=== PATIENT | male | born 1940 | race Caucasian/White ===

== ENCOUNTER → 2016-10-18 | Outpatient (REF) | payer MEDICARE, OTHER ==
[2016-10-18 12:30] LABS: ALBUMIN 3.7 GM/DL (3.2-5.2); ALBUMIN/GLOBULIN RATIO 0.95 (1.00-1.93); BILIRUBIN,TOTAL 0.5 MG/DL (0.2-1.0); CALCIUM LEVEL 8.6 MG/DL (8.8-10.2); CREATININE FOR GFR 1.57 MG/DL (0.70-1.30); POTASSIUM SERUM 4.3 MEQ/L (3.5-5.1); TOTAL PROTEIN 7.6 GM/DL (6.4-8.2)
== END ==
LOC: M SFHCCLAY 08:07
PROVIDERS: ATTEND Family Medicine
DX: E78.2 Mixed hyperlipidemia (principal)

== ENCOUNTER → 2016-11-01 | Outpatient (REF) | payer MEDICARE, OTHER ==
[~2016-11-01] MED LIST: ASPI81TAEC PO; ATOR1TAB18 PO; CIPR500T89 PO; EFFI10TA4 PO; ELIQ2.5T PO; EPLE25TA PO; FINA5TAB2 PO; FLOM5CAP PO; MAALSUS2 PO; METO25TA74 PO; METO25TAB PO; NITR0.4S14 SL; PRAD150C PO; TORS20TA2 PO
== END ==
LOC: M SMT 16:50
PROVIDERS: ATTEND Nurse Practitioner Family
DX: R33.9 Retention of urine, unspecified (principal)
CPT/HCPCS: 51798; 81001; 87086; G0463

== ENCOUNTER → 2016-11-03 | Outpatient (CLI) | payer MEDICARE, BC, OTHER ==
--- NOTE | 2016-11-03 14:57 | REP ---
URINARY TRACT SONOGRAPHY: HISTORY: Urinary retention. FINDINGS: Scanning through the level of the urinary bladder demonstrates elevation of the bladder base from prostate enlargement. Prostate glandular dimensions by ultrasound are 8.4 x 6.7 x 7.6 cm. Calculated prostate glandular volume is therefore 222.7 mL. The urinary bladder is dilated on pre-void images with a calculated volume of 989 mL . Emptying ureteral jets are confirmed from both ureteral orifices on color Doppler interrogation. Postvoid residual is large calculated at 737 mL. Renal cortical echogenicity pattern is somewhat increased bilaterally. This is consistent with chronic medical renal disease. No hydronephrosis is seen on either side. There is a complex appearing cyst in the lower pole left kidney measuring 3.9 x 4.1 x 3 .7 cm. This displays a somewhat thickened septation and a possible calcification. This was noted on a prior study from [facility] dated January 11, 2012. It measured 3.1 x 3.3 x 3.0 cm at that time. It is essentially unchanged other than being slightly larger. The left kidney dimensions are 11.2 x 6.2 x 6.3 cm. Right kidney dimensions are 11.5 x 5.8 x 6.5 cm. IMPRESSION: 1. Evidence of bladder outlet obstruction with dilated pre-void bladder volume and large postvoid bladder residual. Enlarged prostate. 2. Increased renal cortical echogenicity pattern consistent with mild chronic renal disease. 3. Complex 4.1 cm cyst lower pole left kidney very slightly larger than on the 2011 prior study. Signed by Celio Horn MD 11/03/2016 03:03 P
== END ==
LOC: M SMT 13:45
PROVIDERS: ATTEND Nurse Practitioner Family
DX: R93.1 Abnormal findings on diagnostic imaging of heart and coronary circulation (principal)

== ENCOUNTER → 2016-11-04 | Outpatient (REF) | payer MEDICARE, OTHER ==
[~2016-11-04] MED LIST changes: -ASPI81TAEC PO; -CIPR500T89 PO; -ELIQ2.5T PO; -METO25TAB PO
== END ==
LOC: M SFHCCLAY 14:00
PROVIDERS: ATTEND Family Medicine
DX: N40.0 Benign prostatic hyperplasia without lower urinary tract symptoms (principal)

== ENCOUNTER 2016-11-11 15:35 | Inpatient (IN) | payer MEDICARE, OTHER ==
[~2016-11-11] VITALS: Ht 188 cm; Wt 111.0 kg
[2016-11-11] MEDS ORDERED: FLOM5CAP PO (15:53)
[2016-11-11] MEDS ORDERED: NITR0.4S14 SL (15:53)
[2016-11-11] MEDS ORDERED: METO25TA74 PO (15:53)
[2016-11-11] MEDS ORDERED: FINA5TAB2 PO (15:53)
[2016-11-11] MEDS ORDERED: PRAD150C PO (15:53)
[2016-11-11] MEDS ORDERED: ATOR1TAB18 PO (15:53)
[2016-11-11] MEDS ORDERED: EFFI10TA4 PO (15:53)
[2016-11-11] MEDS ORDERED: EPLE25TA PO (15:53)
[2016-11-11] MEDS ORDERED: LIDOCAINE 2% JELLY 30 ML As Ordered ONE (16:45)
[2016-11-11 16:48] LABS: BASO % 0.3 % (0.0-1.0); EOS # 0.2 K/mm3 (0.0-0.50); EOS % 1.6 % (0.0-3.0); LARGE UNSTAINED CELL # 0.2 K/mm3 (0.0-0.4); LARGE UNSTAINED CELL % 1.4 % (0.0-4.0); LYMPH # 1.3 K/mm3 (1.5-4.5); LYMPH % 12.8 % (24.0-44.0); MEAN CORPUSCULAR HEMOGLOBIN 31.5 pg (27.0-33.0); MEAN CORPUSCULAR HGB CONC 33.9 g/dl (32.0-36.5); MEAN CORPUSCULAR VOLUME 92.8 fl (80.0-96.0); MONO # 0.8 K/mm3 (0.0-0.8); MONO % 7.4 % (0.0-5.0); NEUTROPHILS % 76.4 % (36.0-66.0); PLATELET COUNT, AUTOMATED 224 k/mm3 (150-450); RED CELL DISTRIBUTION WIDTH 13.7 % (11.5-14.5); WHITE BLOOD COUNT 10.4 K/mm3 (4.0-10.0)
[2016-11-11 16:51] LABS: INR 1.36
[2016-11-11 16:57] LABS: CALCIUM LEVEL 8.6 MG/DL (8.8-10.2); CREATININE FOR GFR 1.72 MG/DL (0.70-1.30); GLOMERULAR FILTRATION RATE 41.4 (>42); POTASSIUM SERUM 3.7 MEQ/L (3.5-5.1)
[2016-11-11] MEDS ORDERED: LIDOCAINE 2% JELLY 30 ML TOP ONE (17:00)
[2016-11-11] MEDS ORDERED: MAALSUS2 PO (18:44)
[2016-11-11] MEDS ORDERED: TORS20TA2 PO (18:44)
[2016-11-11] MEDS ORDERED: ONDANSETRON 4MG/2ML VIAL (J2405) IV PRN (19:15)
--- NOTE | 2016-11-11 19:55 | REP ---
Clinical: Chest pain. Technique: PA and lateral. Comparison: 01/31/2011. Findings: Mediastinum and cardiac silhouette are stable sternotomy and postsurgical changes again noted. Lung zeng are clear minimal chronic left basilar changes are identified. No acute consolidation, effusion, or pneumothorax. Skeletal structures intact. Impression: Chronic stable changes primarily involving the left base. No obvious acute cardiopulmonary process. Signed by Phillip Varghese MD 11/11/2016 07:47 P
--- NOTE | 2016-11-11 20:54 | HPE ---
DATE OF ADMISSION: 11/11/2016 ATTENDING PHYSICIAN: Dr. Maribel Wick. PRIMARY CARE PROVIDER: Dr. Kilo Werner CHIEF COMPLAINT: Blood in urine HISTORY OF PRESENT ILLNESS: Mr. Holguin is a 76-year-old male with past medical history significant for coronary artery disease status post coronary artery bypass graft (CABG), hypertension, hyperlipidemia, atrial fibrillation, congestive heart failure (CHF), benign prostatic hypertrophy, urinary retention and occasional heartburn, who presents to the emergency department reporting that he urinated blood this afternoon. Patient has history of weak stream, urgency and enlarged prostate. He had PSA level checked and it was elevated at 7.3. He has had previous elevation of his PSA for which he had a prostate biopsy several years ago. Given his elevation in PSA and enlarged prostate, he was referred by his primary care provider to urology. He was seen last week by his urologist. It was noted that he had urinary retention. On 11/03/2016, he had a renal ultrasound done which revealed bladder obstruction with large residual enlarged prostate, chronic renal disease and a left renal cyst. This was pre- and post-void ultrasound. Pre-void volume was 989 mL and post-void was 737 mL. He was seen again by urology today because of the urinary retention. His post-void residual today was 550 mL. There was a trial for urinary catheterization that was performed this morning at the urologist's office. The patient reports that everything went well with that and he subsequently went home. He states that around noontime he went to have lunch with a friend and had an urgency to go to the bathroom and started urinating blood. He proceeded to come to the emergency department thereafter. He denies any previous history of hematuria. No dysuria. No fevers, chills, sweats, lightheadedness, dizziness, abdominal pain, nausea, vomiting, chest pain/pressure, shortness of breath, palpitations, joint pains, lower extremity edema, rash or skin lesions. The patient does have several heart conditions including coronary artery disease status post coronary artery bypass graft (CABG) and stenting, hypertension, atrial fibrillation and congestive heart failure (CHF). He has history of atrial fibrillation; however, heart rate is controlled. His CHF is compensated. He does not know of any valvular heart disease. He denies any angina or shortness of breath with exertion. He has a metabolic equivalent (METs) greater than four. His last stress test is reported to be in 08/2015 in [place], where he used to follow with Dr. Olmedo. Now he follows with Dr. Franklin's office, as he travels to [place] during the winter months. Last echocardiogram is unknown and there is none in our computer system. He denies any lung disease such as obstructive sleep apnea (TANYA) or chronic obstructive pulmonary disease (COPD). He does have history of chronic kidney disease. No history of cerebrovascular accident (CVA) or diabetes. No problems with anesthesia and no known family history of problems with anesthesia. His EKG in the emergency department revealed atrial fibrillation with a heart rate of 82, nonspecific ST-T wave abnormalities. Vitals were stable with the temperature of 97.1, pulse 68, respiratory rate 18, blood pressure 113/76, pulse oximetry 97% on room air. Initial blood pressure was elevated, but this has resolved without any intervention. Urology evaluated the patient in the emergency department and hospitalist was called for medical optimization for possible intervention. PAST MEDICAL HISTORY: 1. Coronary artery disease status post coronary artery bypass graft (CABG) and stent. 2. Atrial fibrillation, on chronic anticoagulation. 3. Congestive heart failure (CHF), ejection fraction (EF) unknown. 4. Hypertension. 5. Hyperlipidemia. 6. Benign prostatic hypertrophy. 7. Urinary retention. 8. Occasional heartburn. PAST SURGICAL HISTORY 1. Coronary artery bypass graft (CABG) in 2009. 2. Cardiac stent in 2010. 3. Colonoscopy. 4. Cataract surgery. 5. Tooth extraction. HOME MEDICATIONS: - Pradaxa 150 mg by mouth twice a day - nitroglycerin 0.4 mg sublingual as needed - Effient 10 mg by mouth daily - torsemide 20 mg daily - eplerenone 25 mg by mouth by mouth daily - Maalox one suspension twice daily as needed - atorvastatin 8 mg at night - finasteride 5 mg by mouth daily - Flomax 0.4 mg by mouth at night - metoprolol succinate 25 mg by mouth at night ALLERGIES: PLAVIX (rash), PROTAMINE (ineffective), MELATONIN (rash). SOCIAL HISTORY: Patient is a former smoker. He quit 52 years ago, maybe smoked a pack per day for 7-8 years. No alcohol or illicit drug use. He lives with his and grandson. No pets in the home. He travels to [place] every winter. No sick contacts. FAMILY HISTORY: Mom had history of myocardial infarction in her 40s, from a stroke in her 70s. Brother also has heart problems and brain aneurysm. Father had history of a hernia. REVIEW OF SYSTEMS: CONSTITUTIONAL: No fevers, chills, night sweats. No significant weight changes. No fatigue. HEENT: No headache, lightheadedness or dizziness. No blurry or double vision. No acute changes in vision or hearing. HEART: Denies any chest pain/pressure, shortness of breath with exertion, palpitations. No chronic lower extremity edema. No orthopnea or paroxysmal nocturnal dyspnea. PULMONARY: No shortness of breath. No cough. No sputum production. GASTROINTESTINAL: No nausea, vomiting, abdominal pain, diarrhea, constipation, hematochezia or melena. GENITOURINARY: Positive for urinary urgency, urinary retention, weak stream, hematuria. No dysuria. INTEGUMENT: No unusual rashes or skin lesions. MUSCULOSKELETAL: No unusual muscle or joint pains. ENDOCRINE: No history of diabetes or thyroid disorder. NEUROLOGIC: No syncope. No paresthesias. No history of cerebrovascular accident (CVA). HEMATOLOGIC: Has excessive bleeding with urination currently, but no previous history of excessive bleeding or bruising. PHYSICAL EXAMINATION: VITAL SIGNS: Temperature 97.1, pulse 68, respiratory rate 18, blood pressure 113/76, pulse ox 97% on room air. GENERAL: The patient is alert and oriented in no acute distress. HEENT: Normocephalic, atraumatic. Extraocular muscles are intact. Pupils are equally round and reactive to light. No scleral icterus. Moist mucosa. NECK: Supple. No cervical lymphadenopathy. No thyromegaly. No jugular venous distension appreciated. HEART: Normal S1, S2. Irregular. Positive for systolic ejection murmur. LUNGS: Clear to auscultation bilaterally. No rales, rhonchi or wheezing. ABDOMEN: Soft, nontender, nondistended. Positive bowel sounds. No rebound, guarding or rigidity. EXTREMITIES: No cyanosis or edema. Positive pedal pulses bilaterally. SKIN: Warm and dry. No rashes noted. NEUROLOGIC: No focal deficits. Cranial nerves II-XII are grossly intact. Motor and sensation intact. LABORATORY DATA: WBC 10.4, hemoglobin 13.6, hematocrit 40.1, platelet count 224. Sodium 138, potassium 3.7, chloride 104, carbon dioxide 25, anion gap 9, BUN 32, creatinine 1.72, GFR 41.4, fasting glucose 146, calcium 8.6. PT 16.9. INR 1.36. APTT 39.4. ASSESSMENT/PLAN: 1. Hematuria with recent urinary catheterization. Urology is currently following. The determination for cystoscopy has not been made yet. Will check hemoglobin and hematocrit (H H) every six hours. Hemoglobin is currently stable at 13.6. He has a Iverson catheter in place with continuous bladder irrigations. Will hold Effient and Pradaxa. Please go back up to physical examination and in the heart section please change it to say normal S1-S2. Regular rate. 2. Acute on chronic kidney disease. Creatinine is currently 1.7. Will provide gentle hydration with normal saline at a rate of 60 mL/hour. Will hold torsemide and eplerenone and continue to monitor renal function. Electrolytes are stable. 3. History of atrial fibrillation. Rate controlled. Will continue with metoprolol 25 mg at night. Anticoagulation is being held secondary to hematuria. 4. History of coronary artery disease status post coronary artery bypass graft (CABG) and stenting. Patient is currently asymptomatic. Patient's last stress test is reported to be 08/2015 and normal. 5. History of congestive heart failure (CHF). Currently compensated. Last echocardiogram unknown. 6. Hypertension. Blood pressure is currently stable. Continue with metoprolol. 7. Hyperlipidemia. Continue with a atorvastatin daily. 8. Benign prostatic hypertrophy (BPH) with urinary retention. Continue with Flomax and Proscar. Was supposed to start intermittent self cath. 9. Medical optimization. Patient may have cystoscopy procedure done. His vitals are stable. He is not experiencing any angina or shortness of breath with exertion. He has functional capacity of METS greater than four. EKG revealed atrial fibrillation with heart rate of 82. No acute ST-T wave changes. Will obtain a baseline chest x-ray. Will continue to hold his blood thinning medication. Will check an INR in the morning and monitor his hemoglobin and hematocrit every six hours. Will provide gentle hydration for his acute kidney injury. The patient is intermediate risk for cystoscopy procedure. He is medically optimized to proceed. Will keep the patient nothing by mouth in case he has the procedure done. 10. CODE STATUS: The patient is FULL CODE. 11. Patient will be admitted as inpatient to progressive care unit (PCU). Dr. Young to take over his care in the morning. 12. Deep venous thrombosis (DVT) prophylaxis with thromboembolitic deterrents (TEDs) and sequentials. My preceptor for this patient encounter was Dr. Maribel Wick. The preceptor was physically present in the building during the encounter and was fully available as needed. All aspects of the patient interview, examination, medical decision-making process, and medical care plan development were reviewed and approved by the preceptor. The preceptor is aware and concurs with the plan as stated in the body of this note and will attest to such by his/her co-signature. Patient seen and examined. Case discussed with resident. Agree with the plan mentioned in the H &P. Maribel NEVES
[2016-11-11] MEDS: ATORVASTATIN 20 MG TAB PO SCH (21:51)
[2016-11-11] MEDS: TAMSULOSIN 0.4 MG CAP PO SCH (21:52)
[2016-11-11] MEDS: NS 1,000 ML IV SCH (21:53)
[2016-11-11] MEDS: METOPROLOL SUCC *XL* 25MG TAB (TopROL *XL*) PO SCH (21:53)
[2016-11-11 21:55] VITALS: BP 148/80
--- NOTE | 2016-11-11 21:59 | CR ---
DATE OF CONSULTATION: 11/11/2016 REASON FOR CONSULTATION: Gross hematuria. HISTORY OF PRESENT ILLNESS: The patient is a 76-year-old male with benign prostatic hypertrophy (BPH) and urinary retention, who recently started undergoing clean intermittent catheterization (CIC) under the direction of Dr. Houston and Dr. Arriaza's urology office. Today, he presented to the office with gross hematuria after performing CIC. Of note, the patient is on Effient and Pradaxa for his cardiac issues. He has a history of atrial fibrillation and multiple cardiac stents. He was also recently started on dutasteride and tamsulosin for his prostate. He was sent to the emergency room today due to excessive gross hematuria and inability to place a catheter in the office. ALLERGIES: 1. PROTAMINE. 2. MELATONIN. 3. CLOPIDOGREL. HOME MEDICATIONS: Finasteride, tamsulosin, metoprolol, atorvastatin, Pradaxa, Effient, eplerenone, and nitroglycerin. PAST MEDICAL HISTORY: 1. Coronary artery disease. 2. Hypertension. 3. Atrial fibrillation. PAST SURGICAL HISTORY: 1. Cardiac bypass surgery. 2. Multiple cardiac stents. SOCIAL HISTORY: The patient lives with his . 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 FAMILY HISTORY: Multiple brothers have benign prostatic hyperplasia as well. PHYSICAL EXAMINATION: VITAL SIGNS: The patient's vital signs were found to be temperature 97.1, pulse 68, blood pressure 113/76, respiratory rate 18, oxygen saturation 97% on room air. Of note, when first presenting to the emergency room, his blood pressure was 187/101. GENERAL: No acute distress. LUNGS: Clear. ABDOMEN: Soft. Nontender, nondistended. GENITOURINARY: Circumcised phallus with hematuria from the meatus. Normal testes bilaterally. EXTREMITIES: Warm and well perfused. LABORATORY DATA: White blood cell count 10.4, hemoglobin 13.6, hematocrit 40.1, platelet count 224. Creatinine 1.72 from a baseline of 1.57. ASSESSMENT: The patient is a 76-year-old man with benign prostatic hypertrophy who recently started undergoing CIC for high residuals. Today he developed gross hematuria. In the emergency room, he was started on continuous bladder irrigation by myself with a 22-Welsh three-way Iverson catheter. 60 mL of clots were irrigated out of the bladder. The urine appears light pink color on moderate continuous bladder irrigation. We will continue to monitor currently. We will make the patient nothing by mouth after midnight in case he needs a cystoscopy with clot evacuation in the morning. I do not think he needs clot evacuation currently as the urine has started to clear up. He is being admitted by the medical team due to his multiple comorbidities.
[2016-11-11 23:59] VITALS: BP 131/74
[2016-11-12 04:45] VITALS: BP 124/67
[2016-11-12 05:22] LABS: MEAN CORPUSCULAR HEMOGLOBIN 30.9 pg (27.0-33.0); MEAN CORPUSCULAR HGB CONC 33.3 g/dl (32.0-36.5); MEAN CORPUSCULAR VOLUME 92.7 fl (80.0-96.0); RED CELL DISTRIBUTION WIDTH 13.8 % (11.5-14.5); WHITE BLOOD COUNT 12.2 K/mm3 (4.0-10.0)
[2016-11-12 05:33] LABS: CALCIUM LEVEL 7.8 MG/DL (8.8-10.2); CREATININE FOR GFR 1.31 MG/DL (0.70-1.30); GLOMERULAR FILTRATION RATE 56.6 (>42); INR 1.38; POTASSIUM SERUM 4.1 MEQ/L (3.5-5.1)
[2016-11-12 08:05] VITALS: BP 128/74
--- NOTE | 2016-11-12 08:23 | IPNPDOC ---
Text Note Date of Service The patient was seen on 11/12/16. NOTE Patient continues on CBI. No issues with clots overnight. Urine draining light pink at moderate rate. No pain currently. No nausea/vomiting. NAD AVSS Abdomen soft Ext wwp Iverson draining light pink at moderate rate Cr 1.3 from 1.7 Hb 11 from 13 76 year old man who was admitted on 11/11/2016 for gross hematuria due to CIC on effient and pradaxa, which are being held currently. At this point urine is much ribbon cleaner than last night. Patient would like to hold off on procedure, given that effects of pradaxa are wearing off. If hematuria gets worse today or if it doesn't start to clear by tomorrow, he understand that he might need a cystoscopy and clot evacuation. - Continue to hold pradaxa and effient per medicine - CBI, titrate to clear - Continue to trend H&H - Will follow closely VS,Ngoc, I+O VS, Ngoc, I+O Laboratory Tests 11/11/16 16:30 Red Blood Count 4.33, Mean Corpuscular Volume 92.8, Mean Corpuscular Hemoglobin 31.5, Mean Corpuscular Hemoglobin Concent 33.9, Red Cell Distribution Width 13.7 , Neutrophils (%) (Auto) 76.4 H, Lymphocytes (%) (Auto) 12.8 L, Monocytes (%) ( Auto) 7.4 H, Eosinophils (%) (Auto) 1.6, Basophils (%) (Auto) 0.3, Neutrophils # (Auto) 8.0 H, Lymphocytes # (Auto) 1.3 L, Monocytes # (Auto) 0.8, Eosinophils # (Auto) 0.2, Basophils # (Auto) 0.0, Calcium Level 8.6 L 11/11/16 22:33 11/12/16 04:48 Red Blood Count 3.75 L, Mean Corpuscular Volume 92.7, Mean Corpuscular Hemoglobin 30.9, Mean Corpuscular Hemoglobin Concent 33.3, Red Cell Distribution Width 13.8, Calcium Level 7.8 L Vital Signs Date Time Temp Pulse Resp B/P (MAP) Pulse Ox O2 Delivery O2 Flow Rate FiO2 11/12/16 08:05 97.3 80 18 128/74 (92) 99 Room Air I&O- Last 24 Hours up to 6 AM 11/12/16 06:00 Intake Total 480 ml Output Total 7525 ml Balance -7045 ml DYLON HATCH MD November 12, 2016 08:23
[2016-11-12] MEDS: FINASTERIDE 5 MG TAB PO SCH (08:35)
--- NOTE | 2016-11-12 09:38 | IPN ---
DATE OF ENCOUNTER: 11/12/2016 SUBJECTIVE: The patient was seen this morning at bedside. No acute overnight events. He continues to have hematuria. Iverson is draining pinkish-colored fluid. He denies any dysuria or urinary discomfort. No nausea, vomiting, abdominal pain. No fevers, chills, chest pain, palpitations, shortness of breath. The patient has not ambulated and is not able to appreciate any lightheadedness or dizziness in bed. OBJECTIVE: Temperature 97.3, pulse 80, respiratory rate 18, blood pressure 128/74, pulse oximetry 99% on room air. General: The patient is alert and oriented. In no acute distress. HEENT: Normocephalic, atraumatic. Extraocular muscles are intact. Pupils are equally round and reactive to light. No scleral icterus. Moist mucosa. Neck: Supple. No cervical lymphadenopathy or thyromegaly. Heart: Normal S1, S2. Irregular. Positive for systolic ejection murmur. Lungs: Clear to auscultation bilaterally. No rales, rhonchi, or wheezing. Abdomen: Soft, nontender, nondistended. Positive bowel sounds. No rebound, guarding, or rigidity. Iverson remains in place, draining pink urine. Extremities: No cyanosis or edema. Positive pedal pulses bilaterally. Skin: Warm and dry. No rashes noted. Neurologic: No focal deficits. Motor and sensation intact. LABORATORY DATA: WBC 12.2, hemoglobin 11.6, hematocrit 34.7, platelet count 216. Sodium 140, potassium 4.1, chloride 108, carbon dioxide 24, anion gap 8, BUN 27, creatinine 1.3, GFR 56.6, fasting glucose 111, calcium 7.8. PT 17.1, INR 1.38. IMAGING STUDIES: The patient had a chest x-ray yesterday, which revealed chronic stable changes. No obvious acute process. ASSESSMENT AND PLAN: 1. Hematuria with recent urinary catheterization. Urology is currently following. His urine output will be monitored for another day, and determination will be made tomorrow if cystoscopy is needed. If urine continues to clear up, this procedure will not be needed. Will continue to monitor his hemoglobin and hematocrit every 6 hours. There was a slight drop in his hemoglobin to 11.6. Will continue with continuous bladder irrigations. Will continue to hold Effient and Pradaxa and allow this to wear off to see if his urine clears up. 2. Acute on chronic kidney disease. Creatinine is currently 1.3. This has improved with normal saline. Will continue at 60 mL per hour. Will hold torsemide and eplerenone and continue to monitor renal function. Electrolytes are stable. 3. History of benign prostatic hypertrophy with urinary retention. The patient is supposed to have chronic intermittent catheterization at home. Will continue with Flomax and Proscar for the time being. 4. History of atrial fibrillation. Rate is controlled with metoprolol. Anticoagulation is being held secondary to hematuria. 5. History of coronary artery disease, status post coronary artery bypass graft (CABG) and stenting. The patient is currently asymptomatic. Continue with beta gonzalo and statin therapy. 6. History of congestive heart failure (CHF). Currently compensated. 7. Hypertension. Blood pressure is stable. Continue with metoprolol. 8. Hyperlipidemia. Continue with atorvastatin. 9. Deep venous thrombosis (DVT) prophylaxis. Thromboembolic deterrents (TEDs) and sequentials. My preceptor for this patient encounter was Becca Young MD. The preceptor was physically present in the building during the encounter and was fully available. As needed, all aspects of the patient interview, examination, medical decision making process, and medical care plan development were reviewed and approved by the preceptor. The preceptor is aware and concurs with the plan as stated in the body of this note and will attest to such by his/her cosignature.
[2016-11-12] MEDS: NS 1,000 ML IV SCH (11:55)
[2016-11-12 12:00] VITALS: BP 146/80
[2016-11-12 16:00] VITALS: BP 124/72
[2016-11-12] MEDS: ACETAMINOPHEN TAB 650MG DOSE (2X325MG) PO PRN (20:18)
[2016-11-12] MEDS: ATORVASTATIN 20 MG TAB PO SCH (20:18)
[2016-11-12] MEDS: METOPROLOL SUCC *XL* 25MG TAB (TopROL *XL*) PO SCH (20:19)
[2016-11-12] MEDS: TAMSULOSIN 0.4 MG CAP PO SCH (20:19)
[2016-11-12 23:59] VITALS: BP 134/76
[2016-11-13] MEDS: ACETAMINOPHEN TAB 650MG DOSE (2X325MG) PO PRN ×3 (01:38→21:59)
[2016-11-13 04:20] VITALS: BP 148/74
[2016-11-13] MEDS: NS 1,000 ML IV SCH ×2 (04:20→17:00)
[2016-11-13 05:52] LABS: MEAN CORPUSCULAR HEMOGLOBIN 31.9 pg (27.0-33.0); MEAN CORPUSCULAR HGB CONC 34.4 g/dl (32.0-36.5); MEAN CORPUSCULAR VOLUME 92.9 fl (80.0-96.0); RED CELL DISTRIBUTION WIDTH 13.9 % (11.5-14.5); WHITE BLOOD COUNT 17.7 K/mm3 (4.0-10.0)
[2016-11-13 06:08] LABS: ANION GAP 7 MEQ/L (8-16); BLOOD UREA NITROGEN 21 MG/DL (7-18); CALCIUM LEVEL 8.5 MG/DL (8.8-10.2); CARBON DIOXIDE LEVEL 24 MEQ/L (21-32); CHLORIDE LEVEL 109 MEQ/L (98-107); CREATININE FOR GFR 1.14 MG/DL (0.70-1.30); GLOMERULAR FILTRATION RATE > 60.0 (>42); GLUCOSE, FASTING 142 MG/DL (83-110); POTASSIUM SERUM 4.2 MEQ/L (3.5-5.1); SODIUM LEVEL 140 MEQ/L (136-145)
[2016-11-13 08:00] VITALS: BP 143/71
[2016-11-13] MEDS: FINASTERIDE 5 MG TAB PO SCH (09:02)
--- NOTE | 2016-11-13 09:11 | ECGEPIP ---
Stationary ECG Study [facility] - ED Test Date: 2016-11-11 Pat Name: JAVAN VALDIVIA Department: Room: - Gender: M [employer] Fe[employer]: : [id number] Requested By: JANINE SANCHEZ PA-C. Order Number: [id number] Reading MD: Nba Silver Measurements Intervals [place] Rate: 82 P: [place]: 0 QRS: 65 QRSD: 90 T: 28 QT: 392 QTc: 459 Interpretive Statements [employer] RBBB NONSPECIFIC ST & T-WAVE ABNORMALITY NO PRIORS Electronically Signed On 11-13-2016 9:11:14 EDT by Nba Silver
--- NOTE | 2016-11-13 09:34 | IPNPDOC ---
Text Note Date of Service The patient was seen on 11/13/16. NOTE Patient seen and examined. Urine clear on slow CBI, however becomes darker when CBI turned off for several minutes. No pain, nausea, vomiting, or fever. AVSS NAD Abdomen soft Ext wwp urine clear on slow CBI Cr 1.14 76 year old man who was admitted with gross hematuria after CIC on effient and pradaxa. I had a long discussion with the patient and recommended cystoscopy this morning because we still cannot stop the CBI. He would like to wait one more day prior to undergoing a procedure. We agreed to reevaluate tomorrow morning and if the CBI still cannot be stopped, then we would perform cystoscopy, clot evacuation and fulguration. - regular diet today, npo after midnight - continue CBI - recommend trending H&H less often (they have been stable) - Will continue to follow closely VS,Ngoc, I+O VS, Jaxe, I+O Laboratory Tests 11/12/16 10:29 11/12/16 16:31 11/12/16 22:15 11/13/16 05:22 Red Blood Count 3.46 L, Mean Corpuscular Volume 92.9, Mean Corpuscular Hemoglobin 31.9, Mean Corpuscular Hemoglobin Concent 34.4, Red Cell Distribution Width 13.9, Calcium Level 8.5 L Vital Signs Date Time Temp Pulse Resp B/P (MAP) Pulse Ox O2 Delivery O2 Flow Rate FiO2 11/13/16 08:00 98.0 78 18 143/71 (95) 96 Room Air I&O- Last 24 Hours up to 6 AM 11/13/16 05:59 Intake Total 1980 ml Output Total 3337 ml Balance -1357 ml DYLON HATCH MD November 13, 2016 09:34
[2016-11-13] MEDS: CIPROFLOXACIN 400 MG in APPROPRIATE DILUENT 1 EA IV SCH ×2 (10:55→22:00)
[2016-11-13 11:09] LABS: MICROSCOPIC INDICATED? MAN YES (NO)
[2016-11-13 11:12] LABS: BACTERIA, URINE NONE SEEN; RBC, URINE TNTC /hpf (0-3); SQUAMOUS EPITHELIAL CELL URINE NONE SEEN /hpf (SMALL AMT)
[2016-11-13 11:13] LABS: HYALINE CAST, URINE NONE SEEN /lpf (0-1); MICROSCOPIC EXAM PERFORMED
[2016-11-13 12:00] VITALS: BP 131/63
[2016-11-13 16:00] VITALS: BP 139/68
--- NOTE | 2016-11-13 18:47 | IPN ---
DATE: 11/13/2016 SUBJECTIVE: The patient is seen and examined in the room today. Today, the patient stated that he would prefer to wait to see if he continued to have hematuria, that postponed urological procedure to tomorrow. No overnight events reported. Denied any fever or chills or chest pain. OBJECTIVE: VITAL SIGNS: Temperature is 98, pulse 78, respirations 18, blood pressure is 143/71, pulse oximetry is 96% on room air. GENERAL: Fatigue. No sign of acute distress. Alert and oriented times three. HEENT: Normocephalic, atraumatic. Extraocular motor grossly intact. CARDIOVASCULAR: Irregularly irregular. Positive S1, S2. LUNGS: Clear to auscultation bilaterally. No wheezing or rhonchi. ABDOMEN: Soft, nontender, nondistended. Bowel sounds are present. No rebound or guarding. EXTREMITIES: No edema. No sign of cyanosis. GENITOURINARY (): The patient had a Iverson catheter with a flush. There are still multiple block clots that came out of the urinary catheter. LABORATORY DATA: White blood count (WBC) is 17.7, hemoglobin 3.46, hematocrit 32.1, platelet count is 187. Erythrocyte sedimentation rate (ESR) is 47. Sodium is 140, potassium is 4.2, chloride is 109, CO2 24, BUN 21, creatine 1.14, glomerular filtration rate (GFR) greater than 60, fasting glucose is 142. C-reactive protein is 3.05. Microbiology: Blood culture is pending. Urine culture is pending. ASSESSMENT AND PLAN: 1. Gross hematuria with recent urinary catheterization. Urology has been consulted. Would appreciate their assistance. The patient's anticoagulation has been on hold. The patient Pradaxa and Effient has been on hold since admission. Per the patient's decision, will continue medical management for now and will postpone the possible urological procedure to tomorrow. 2. Acute on chronic kidney injury. After the Iverson placement, the patient's renal function has been improving. Will continue supplement with IV fluid. 3. Atrial fibrillation. The patient's Pradaxa had to be on hold due to the hematuria. The patient's heart rate has been in satisfactory range. The patient is taking metoprolol succinate 25 mg by mouth at bedtime (q.h.s.). 4. History of coronary artery disease, status post coronary artery bypass graft (CABG) and stenting. Due to the acute bleeding, the patient's Effient will be on hold. The patient is currently taking metoprolol and statin. 5. History of congestive heart failure (CHF). Will monitor patient clinically. The patient is continued on the IV fluid. Patient is NPO. 6. Hypertension. Blood pressure is stable on metoprolol. 7. Hyperlipidemia on atorvastatin. 8. Deep vein thrombosis (DVT) prophylaxis. Due to the hematuria, anticoagulation will be on hold. The patient is not on Pradaxa anymore. The patient is on TEDs, sequential compression device. [facility]
[2016-11-13 20:00] VITALS: BP 145/69
[2016-11-13] MEDS: ATORVASTATIN 20 MG TAB PO SCH (21:59)
[2016-11-13] MEDS: METOPROLOL SUCC *XL* 25MG TAB (TopROL *XL*) PO SCH (22:00)
[2016-11-13] MEDS: TAMSULOSIN 0.4 MG CAP PO SCH (22:00)
[2016-11-14] VITALS (8 sets, daily range): BP systolic 120–154; BP diastolic 56–68
[2016-11-14] MEDS: NS 1,000 ML IV SCH ×3 (04:00→21:49)
[2016-11-14 05:16] LABS: BASO % 0.2 % (0.0-1.0); EOS # 0.1 K/mm3 (0.0-0.50); EOS % 0.8 % (0.0-3.0); LARGE UNSTAINED CELL # 0.3 K/mm3 (0.0-0.4); LARGE UNSTAINED CELL % 1.7 % (0.0-4.0); LYMPH # 1.4 K/mm3 (1.5-4.5); LYMPH % 9.2 % (24.0-44.0); MEAN CORPUSCULAR HEMOGLOBIN 31.3 pg (27.0-33.0); MEAN CORPUSCULAR HGB CONC 33.3 g/dl (32.0-36.5); MEAN CORPUSCULAR VOLUME 93.8 fl (80.0-96.0); MONO # 1.1 K/mm3 (0.0-0.8); MONO % 7.6 % (0.0-5.0); NEUTROPHILS % 80.5 % (36.0-66.0); PLATELET COUNT, AUTOMATED 171 k/mm3 (150-450); WHITE BLOOD COUNT 14.9 K/mm3 (4.0-10.0)
[2016-11-14 05:32] LABS: ANION GAP 5 MEQ/L (8-16); BLOOD UREA NITROGEN 17 MG/DL (7-18); CALCIUM LEVEL 7.3 MG/DL (8.8-10.2); CARBON DIOXIDE LEVEL 23 MEQ/L (21-32); CHLORIDE LEVEL 109 MEQ/L (98-107); CREATININE FOR GFR 1.13 MG/DL (0.70-1.30); GLOMERULAR FILTRATION RATE > 60.0 (>42); GLUCOSE, FASTING 144 MG/DL (83-110); POTASSIUM SERUM 4.2 MEQ/L (3.5-5.1); SODIUM LEVEL 137 MEQ/L (136-145)
[2016-11-14] MEDS: FINASTERIDE 5 MG TAB PO SCH (09:30)
[2016-11-14] MEDS: CIPROFLOXACIN 400 MG in APPROPRIATE DILUENT 1 EA IV SCH ×2 (09:30→21:49)
[2016-11-14] MEDS ORDERED: MIDAZOLAM INJ 2 MG/2 ML VIAL (J2250) As Ordered ONE (10:20)
[2016-11-14] MEDS ORDERED: PROPOFOL 200 MG/20 ML VIAL As Ordered ONE ×2 (10:20→11:35)
[2016-11-14] MEDS ORDERED: fentaNYL 100 MCG/2 ML INJECTION (J3010) As Ordered ONE ×2 (10:20→11:23)
[2016-11-14] MEDS ORDERED: LIDOCAINE 2% INJ 100 MG/5 ML SDV (FOR ANES.) As Ordered ONE (10:20)
--- NOTE | 2016-11-14 10:24 | IPNPDOC ---
Text Note Date of Service The patient was seen on 11/14/16. NOTE Patient still with hematuria requiring CBI. No acute events overnight. No nausea or pain. NAD AVSS Abdomen soft, nt, nd Ext wwp Urine dark pink on CBI A/P 76 year old man who developed gross hematuria after CIC on 11/11/2016 while on pradaxa and effient. Plan is to take to the operating room today for cystoscopy , clot evacuation, and fulguration given that hematuria is not resolving and patient is still passing clots in his urine. - Continue venodynes - Keep NPO - Booked and consented for OR Vital Signs Date Time Temp Pulse Resp B/P (MAP) Pulse Ox O2 Delivery O2 Flow Rate FiO2 11/14/16 08:24 98.8 78 18 127/64 (85) 97 Room Air 11/14/16 04:00 99.4 87 18 127/68 (87) 95 Room Air 11/14/16 00:00 99.9 64 20 124/66 (85) 99 Room Air 11/13/16 22:00 91 145/69 11/13/16 20:00 99.4 91 16 145/69 (94) 100 Room Air 11/13/16 16:00 98.7 71 18 139/68 (91) 97 Room Air 11/13/16 12:00 98.1 75 18 131/63 (85) 98 Room Air Intake & Output 11/14/16 06:00 Intake Total 1940 ml Output Total 3125 ml Balance -1185 ml Laboratory Tests 11/13/16 10:54: Bedside Urine Color (LAB) REDH, Bedside Urine Appearance (LAB) 1.005, Bedside Urine pH (LAB) 6.0, Bedside Urine Specific [place] (LAB 1.005, Bedside Urine Protein (LAB) 2+H, Bedside Urine Glucose (UA) TRACE(50 MG/DL), Bedside Urine Ketones (LAB) OBSCUREDH, Bedside Urine Blood POSITIVEH, Bedside Urine Nitrite ( LAB) OBSCUREDH, Bedside Urine Bilirubin (LAB) NEGATIVE, Bedside Urine Urobilinogen (LAB) NORMAL, Bedside Urine Leukocyte Esterase (L POSITIVEH, Urine WBC 3-5H, Urine RBC TNTCH, Urine Squamous Epithelial Cells NONE SEEN, Urine Bacteria NONE SEEN, Urine Hyaline Casts NONE SEEN, Urine Sediment Examination PERFORMED 11/14/16 04:59: White Blood Count 14.9H, Red Blood Count 3.27L, Hemoglobin 10.2L, Hematocrit 30.7L, Mean Corpuscular Volume 93.8, Mean Corpuscular Hemoglobin 31.3, Mean Corpuscular Hemoglobin Concent 33.3, Red Cell Distribution Width 14.0, Platelet Count 171, Neutrophils (%) (Auto) 80.5H, Lymphocytes (%) (Auto) 9.2L, Monocytes (%) (Auto) 7.6H, Eosinophils (%) (Auto) 0.8, Basophils (%) (Auto) 0.2, Neutrophils # (Auto) 12.0H, Lymphocytes # (Auto) 1.4L, Monocytes # (Auto) 1.1H, Eosinophils # (Auto) 0.1, Basophils # (Auto) 0.0, Large Unclassified Cells % 1.7 , Large Unclassified Cells # 0.3, Blood Urea Nitrogen 17, Creatinine 1.13, Sodium Level 137, Potassium Level 4.2, Chloride Level 109H, Carbon Dioxide Level 23, Calcium Level 7.3L, Anion Gap 5L, Glomerular Filtration Rate > 60.0, Fasting Glucose 144H Current Medications Medications (Trade) Dose Ordered Sig/Leni Route PRN Reason Start Time Stop Time Status Last Admin Dose Admin Acetaminophen (Tylenol Tab) 650 mg Q4HP PRN PO MILD PAIN OR FEVER 11/11/16 19:15 12/11/16 19:14 11/13/16 21:59 650 MG Atorvastatin Calcium (Lipitor) 80 mg QHS PO 11/11/16 21:00 12/11/16 20:59 11/13/16 21:59 80 MG Ciprofloxacin 400 mg/IV Miscellaneous Supplies 200 ml @ 200 mls/hr Q12H IV 11/13/16 10:00 11/20/16 09:59 11/14/16 09:30 200 MLS/HR Finasteride (Proscar) 5 mg DAILY PO 11/12/16 09:00 12/12/16 08:59 11/14/16 09:30 5 MG Metoprolol Succinate (TopROL XL) 25 mg QHS PO 11/11/16 21:00 12/11/16 20:59 11/13/16 22:00 25 MG Sodium Chloride 1,000 ml @ 100 mls/hr Q10H IV 11/13/16 17:00 12/13/16 16:59 11/14/16 04:00 100 MLS/HR Tamsulosin HCl (Flomax) 0.4 mg QHS PO 11/11/16 21:00 12/11/16 20:59 11/13/16 22:00 0.4 MG Laboratory Tests 11/11/16 16:30 Red Blood Count 4.33, Mean Corpuscular Volume 92.8, Mean Corpuscular Hemoglobin 31.5, Mean Corpuscular Hemoglobin Concent 33.9, Red Cell Distribution Width 13.7 , Neutrophils (%) (Auto) 76.4, Lymphocytes (%) (Auto) 12.8, Monocytes (%) (Auto ) 7.4, Eosinophils (%) (Auto) 1.6, Basophils (%) (Auto) 0.3, Neutrophils # (Auto ) 8.0, Lymphocytes # (Auto) 1.3, Monocytes # (Auto) 0.8, Eosinophils # (Auto) 0.2, Basophils # (Auto) 0.0, Calcium Level 8.6 11/11/16 22:33 11/12/16 04:48 Red Blood Count 3.75, Mean Corpuscular Volume 92.7, Mean Corpuscular Hemoglobin 30.9, Mean Corpuscular Hemoglobin Concent 33.3, Red Cell Distribution Width 13.8 , Calcium Level 7.8 11/12/16 10:29 11/12/16 16:31 11/12/16 22:15 11/13/16 05:22 Red Blood Count 3.46, Mean Corpuscular Volume 92.9, Mean Corpuscular Hemoglobin 31.9, Mean Corpuscular Hemoglobin Concent 34.4, Red Cell Distribution Width 13.9 , Calcium Level 8.5 11/14/16 04:59 Red Blood Count 3.27, Mean Corpuscular Volume 93.8, Mean Corpuscular Hemoglobin 31.3, Mean Corpuscular Hemoglobin Concent 33.3, Red Cell Distribution Width 14.0 , Calcium Level 7.3, Neutrophils (%) (Auto) 80.5, Lymphocytes (%) (Auto) 9.2, Monocytes (%) (Auto) 7.6, Eosinophils (%) (Auto) 0.8, Basophils (%) (Auto) 0.2, Neutrophils # (Auto) 12.0, Lymphocytes # (Auto) 1.4, Monocytes # (Auto) 1.1, Eosinophils # (Auto) 0.1, Basophils # (Auto) 0.0 VS,Fishbone, I+O VS, Fishbone, I+O Laboratory Tests 11/14/16 04:59 Red Blood Count 3.27 L, Mean Corpuscular Volume 93.8, Mean Corpuscular Hemoglobin 31.3, Mean Corpuscular Hemoglobin Concent 33.3, Red Cell Distribution Width 14.0, Neutrophils (%) (Auto) 80.5 H, Lymphocytes (%) (Auto) 9.2 L, Monocytes (%) (Auto) 7.6 H, Eosinophils (%) (Auto) 0.8, Basophils (%) ( Auto) 0.2, Neutrophils # (Auto) 12.0 H, Lymphocytes # (Auto) 1.4 L, Monocytes # (Auto) 1.1 H, Eosinophils # (Auto) 0.1, Basophils # (Auto) 0.0, Calcium Level 7.3 L Vital Signs Date Time Temp Pulse Resp B/P (MAP) Pulse Ox O2 Delivery O2 Flow Rate FiO2 11/14/16 08:24 98.8 78 18 127/64 (85) 97 Room Air I&O- Last 24 Hours up to 6 AM 11/14/16 06:00 Intake Total 1940 ml Output Total 3125 ml Balance -1185 ml DYLON HATCH MD November 14, 2016 10:24
[2016-11-14] MEDS ORDERED: cefTRIAXone SOD 1 GM VIAL (J0696) As Ordered ONE (10:44)
[2016-11-14] MEDS ORDERED: ONDANSETRON 4MG/2ML VIAL (J2405) As Ordered ONE (11:28)
--- NOTE | 2016-11-14 12:02 | IPN ---
DATE OF VISIT: 11/14/2016 SUBJECTIVE: The patient is seen and examined in the room today. THE patient has been nothing by mouth (n.p.o.). The patient is scheduled to go to the operating room (OR) for urological procedures. Still some blood clot noted in the Iverson catheter. The patient denies any worsening of lower extremity swelling. Denied any shortness of breath. OBJECTIVE: VITAL SIGNS: Temperature is 98.8, pulse 78, respirations 18, blood pressure is 127/64, and pulse oximetry is 97% in room air. GENERAL: No sign of acute distress. Alert and oriented times three. HEENT: Normocephalic, atraumatic. Extraocular motor grossly intact. CARDIOVASCULAR: Positive S1, S2. Irregularly irregular. Heart rate running between 65 to 90 on telemetry. LUNGS: Clear to auscultation bilaterally. No wheezing or rhonchi. ABDOMEN: Soft, nontender, nondistended. Bowel sounds are present. No rebound or guarding. EXTREMITIES: Trace edema bilaterally. No sign of cyanosis. LABORATORY DATA: White blood count (WBC) is 14.9, hemoglobin 10.2, hematocrit 30.7 and platelet count is 171. Sodium is 137, potassium 4.2, chloride 109, CO2 23, BUN 17, creatine 1.13, glomerular filtration rate (GFR) greater than 60, fasting glucose is 144. Calcium 7.4. Microbiology: Blood culture is negative after 24 hours times two sets. Urine culture is pending. ASSESSMENT AND PLAN: 1. Gross hematuria with recent urinary catheterization while patient is on anticoagulation and antiplatelet therapy. Urology will bring the patient to the operating room for a procedure today. Will continue to follow. The patient's Pradaxa and Effient has been on hold since admission. 2. Acute on chronic kidney injury. After the Iverson placement, the patient's renal function continued to improve. Now patient's renal function is at its baseline. 3. Atrial fibrillation. Heart rate is in the satisfactory range. The patient is taking metoprolol succinate 25 mg by mouth daily to control the heart rate. Pradaxa is on hold due to hematuria. 4. History of coronary artery disease status post coronary artery bypass graft (CABG) and stenting. Effient has been on hold due to acute hematuria. The patient is currently on a beta gonzalo and statin. 5. History of congestive heart failure (CHF). No sign of fluid overload at the moment. The patient has been nothing by mouth and the patient is supported with IV fluid. Continue to monitor for any sign of fluid overload. 6. Hypertension. Blood pressure is stable on metoprolol. 7. Hyperlipidemia, on atorvastatin. 8. Deep vein thrombosis (DVT) prophylaxis. Due to the hematuria, anticoagulation has been on hold. Not on Pradaxa. The patient is on thromboembolic deterrent stockings (TEDs) and sequential compression devices.
[2016-11-14] MEDS ORDERED: fentaNYL 100 MCG/2 ML INJECTION (J3010) IV PRN (12:30)
[2016-11-14] MEDS ORDERED: LR 1,000 ML IV SCH (12:30)
[2016-11-14] MEDS ORDERED: ONDANSETRON 4MG/2ML VIAL (J2405) IV PRN (12:30)
[2016-11-14] MEDS: TAMSULOSIN 0.4 MG CAP PO SCH (21:48)
[2016-11-14] MEDS: ATORVASTATIN 20 MG TAB PO SCH (21:48)
[2016-11-14] MEDS: METOPROLOL SUCC *XL* 25MG TAB (TopROL *XL*) PO SCH (21:49)
[2016-11-15] VITALS (7 sets, daily range): BP systolic 129–146; BP diastolic 60–82
[2016-11-15] MEDS: ACETAMINOPHEN TAB 650MG DOSE (2X325MG) PO PRN ×2 (04:43→18:49)
[2016-11-15 05:15] LABS: BASO % 0.2 % (0.0-1.0); EOS # 0.3 K/mm3 (0.0-0.50); EOS % 2.2 % (0.0-3.0); LARGE UNSTAINED CELL # 0.2 K/mm3 (0.0-0.4); LARGE UNSTAINED CELL % 1.3 % (0.0-4.0); LYMPH # 1.3 K/mm3 (1.5-4.5); LYMPH % 8.2 % (24.0-44.0); MEAN CORPUSCULAR HEMOGLOBIN 31.8 pg (27.0-33.0); MEAN CORPUSCULAR HGB CONC 34.1 g/dl (32.0-36.5); MEAN CORPUSCULAR VOLUME 93.1 fl (80.0-96.0); MONO # 1.1 K/mm3 (0.0-0.8); MONO % 8.2 % (0.0-5.0); NEUTROPHILS % 79.8 % (36.0-66.0); PLATELET COUNT, AUTOMATED 166 k/mm3 (150-450); RED CELL DISTRIBUTION WIDTH 14.1 % (11.5-14.5); WHITE BLOOD COUNT 13.7 K/mm3 (4.0-10.0)
[2016-11-15 05:27] LABS: ANION GAP 7 MEQ/L (8-16); BLOOD UREA NITROGEN 18 MG/DL (7-18); CALCIUM LEVEL 7.3 MG/DL (8.8-10.2); CARBON DIOXIDE LEVEL 22 MEQ/L (21-32); CHLORIDE LEVEL 107 MEQ/L (98-107); CREATININE FOR GFR 1.13 MG/DL (0.70-1.30); GLOMERULAR FILTRATION RATE > 60.0 (>42); GLUCOSE, FASTING 167 MG/DL (83-110); POTASSIUM SERUM 4.1 MEQ/L (3.5-5.1); SODIUM LEVEL 136 MEQ/L (136-145)
--- NOTE | 2016-11-15 06:33 | RO ---
DATE OF PROCEDURE: 11/14/2016 OPERATING SURGEON: Dr. Hussein Haile MACHINE CLOTH TRIMMER: None. ANESTHESIA: Dr. Thomas PREOPERATIVE DIAGNOSIS: Gross hematuria. POSTOPERATIVE DIAGNOSIS: Gross hematuria with benign prostatic hypertrophy. OPERATIVE FINDINGS: Enlarged prostate with a large median lobe. ESTIMATED BLOOD LOSS: Minimal. URINE OUTPUT: Not measurable. DRAINS: 24 Algerian 3-way Iverson catheter connected to continuous bladder irrigation. CONDITION: Good. INTRAVENOUS FLUIDS IN THE OPERATING ROOM: 350 mL. INDICATIONS FOR THE PROCEDURE: The patient is a 76-year-old male who presented to the hospital on 11/11/2016 with gross hematuria after a straight catheterization. Of note, the patient was on Pradaxa and Effient. He was admitted to the medical service and was started on continuous bladder irrigation after manual irrigation was performed in the emergency room by myself. He was on continuous bladder irrigation up until 11/14/2016. He continued to have gross hematuria and bladder irrigation was unable to be weaned off. It was decided to take the patient to the operating room for cystoscopy, clot evacuation and fulguration. The patient understood the risks and benefits of the procedure and wished to proceed. Of note, the patient inquired about having a transurethral resection of the prostate performed at the same time. I explained to him that this was not a good idea because his Effient had not been completely weaned off yet. PROCEDURE NARRATIVE: The patient was taken to the operating room after all necessary paperwork was confirmed. He was placed in dorsal lithotomy position and prepped and draped in the usual sterile fashion. This was performed after induction of anesthesia. Ceftriaxone was administered as preoperative antibiotic. A 26 Algerian resectoscope with a visual obturator was inserted into the bladder. The entire urethra was examined. It was normal with several areas noted from previous traumatic straight catheterizations. The prostate was enlarged with a high bladder neck and a very large median lobe obstructing the bladder outlet. At this point, the visual obturator was removed, keeping the resectoscope sheath in place. A working element was placed with a button electrode for fulguration. The entire bladder was examined. There were no abnormalities noted in the bladder other than mucosal irritation from his Iverson catheter and continuous bladder irrigation. Both ureteral orifices were identified and were not harmed. The prostatic urethra had several small areas of bleeding which were fulgurated with the button electrode. This was done with normal saline for irrigation as this was a bipolar electrode. Once adequate hemostasis was obtained and all the clot was evacuated out using the Urovac evacuator, a 24 Algerian Iverson catheter was placed into the bladder. This was a 3-way Iverson catheter. It was connected to continuous bladder irrigation. The irrigation that was coming out of the bladder was considerably less bloody than prior to the procedure. At this point, it was determined to terminate the procedure. He was connected to continuous bladder irrigation and a Iverson catheter drainage bag. The patient tolerated the procedure well and was taken to the recovery room without incident. PLAN: The patient will remain on continuous bladder irrigation until the urine is completely clear. He will likely need to go home with a Iverson catheter and will followup with Dr. Martinez or Dr. 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
[2016-11-15] MEDS: NS 1,000 ML IV SCH (08:34)
[2016-11-15] MEDS ORDERED: LIDOCAINE 1% MDV 20ML VIAL As Ordered ONE (08:43)
[2016-11-15] MEDS: FINASTERIDE 5 MG TAB PO SCH (09:14)
[2016-11-15] MEDS ORDERED: CALCIUM GLUCONATE 1,000 MG in D5W MINI-BAG PLUS 100 ML IV ONE (10:00)
[2016-11-15] MEDS ORDERED: ISOVUE-370 76% 100ML VIAL (Q9967) As Ordered ONE (10:41)
[2016-11-15] MEDS: CIPROFLOXACIN 400 MG in APPROPRIATE DILUENT 1 EA IV SCH (11:29)
--- NOTE | 2016-11-15 13:28 | IPNPDOC ---
Text Note Date of Service The patient was seen on 11/15/16. NOTE Subjective: Patient feels well once to go home. Denies any complaints. No abdominal pain. No nausea or vomiting. No chest pain or shortness of breath. Objective: Vitals: (see below) General: No acute distress, laying comfortably in bed. HEENT: Moist mucous membranes. Neck: No JVD or lymphadenopathy Cardiac: RRR, No murmurs Pulm: Clear to auscultation b/l. No wheezing, rhonchi Abd: NT/ND + BS Ext: No edema or cyanosis Iverson with mild hematuria. No clots. Labs (see below) Images: Assessment/Plan 1. Gross hematuria with recent self-catheterization. Patient had been on Pradaxa and effient, which are currently on hold as the patient continues to have hematuria. Patient did go to the or with urology on 11/14/16 for cystoscopy , evacuation of clots, fulguration, and he tolerated it well. Continued on bladder irrigation given continued hematuria. Hemodynamically stable. Hemoglobin had dropped from 13.6-8.9, and the patient will be transfused 2 units of PRBC today. Will likely need to Iverson in place upon discharge for follow-up with outpatient urology. 2. Acute on chronic kidney injury- improved. Iverson in place. Avoid nephrotoxins. 3. Atrial fibrillation with rapid ventricular response- metoprolol taste tartrate and increased dose. Asymptomatic. Patient aware of increased risk of stroke as his Pradaxa is on hold. 4. History of CAD status post CABG- Effient on hold given hematuria. Denies any chest pain or palpitations. Continue metoprolol and statin. 5. History of CHF- compensated. 6. Hypertension- stable. 7. Hyperlipidemia- on statin DVT prophy: SCDs VS,Fishbone, I+O VS, Fishbone, I+O Laboratory Tests 11/15/16 05:05 Red Blood Count 2.81 L, Mean Corpuscular Volume 93.1, Mean Corpuscular Hemoglobin 31.8, Mean Corpuscular Hemoglobin Concent 34.1, Red Cell Distribution Width 14.1, Neutrophils (%) (Auto) 79.8 H, Lymphocytes (%) (Auto) 8.2 L, Monocytes (%) (Auto) 8.2 H, Eosinophils (%) (Auto) 2.2, Basophils (%) ( Auto) 0.2, Neutrophils # (Auto) 11.0 H, Lymphocytes # (Auto) 1.3 L, Monocytes # (Auto) 1.1 H, Eosinophils # (Auto) 0.3, Basophils # (Auto) 0.0, Calcium Level 7.3 L Vital Signs Date Time Temp Pulse Resp B/P (MAP) Pulse Ox O2 Delivery O2 Flow Rate FiO2 11/15/16 12:00 98.8 117 18 137/60 (85) 98 Room Air 11/14/16 12:20 2 I&O- Last 24 Hours up to 6 AM 11/15/16 05:59 Intake Total 5350 ml Output Total 5050 ml Balance 300 ml DEVAN MICHEL MD November 15, 2016 13:28
[2016-11-15] MEDS: METOPROLOL TART 25 MG TABLET PO SCH ×2 (14:05→20:22)
--- NOTE | 2016-11-15 16:46 | REP ---
CT ABDOMEN: HISTORY: Complex cyst seen in the left kidney measuring 4.1 cm. CONTRAST: 100 mL Isovue-370 COMPARISON: There are no prior CTs for comparison. FINDINGS: The precontrast enhanced portion of the examination shows geographic low densities scattered throughout the hepatic parenchyma, one particular area of note is seen in the anterior segment of the right lobe abutting the medial segment of the left lobe, which is of extreme low density. There is cholelithiasis. There are calcifications seen abutting and within a left renal cystic mass. This has precontrast Hounsfield unit reading which are near water density. The contrast enhanced portion of the exam shows no evidence of contrast enhancement of the left renal cystic mass. There is a single thin nonenhancing intracystic septation. This cystic mass measures approximately 4.1 cm in its greatest dimension. There are no definite enhancing renal lesions. There are no enhancing hepatic lesions. The spleen, pancreas, and adrenal glands are within normal limits. The abdominal aorta and periaortic regions are within normal limits. No free fluid or free air is seen in the abdomen. The intraabdominal bowel loops and their mesenteries are within normal limits. CT pelvis: There is a Iverson balloon catheter seen in the urinary bladder. The urinary bladder wall appears thickened, although the bladder is decompressed by catheterization. There is no free fluid or free air seen in the pelvis. There is no pelvic adenopathy. There is prostatomegaly. Bone window technique throughout the exam shows spinal degenerative changes. The lung bases show bibasilar posterior pleural thickening, which is slightly irregular and seen in conjunction with subsegmental atelectatic changes and bilateral basilar cylindrical bronchiectasis. IMPRESSION: 1. 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 Urological consultation and followup is recommended, although the findings do suggest a low potential for malignancy. 2. Geographic fatty infiltration of the liver. 3. Cholelithiasis. 4. Urinary bladder wall thickening with air density within the urinary bladder likely secondary to recent urinary bladder instrumentation with catheter. 5. Prostatomegaly. 6. Abnormal lung base images as described above. Contrast enhanced CT examination of the chest is recommended for complete evaluation. 7. Other findings as described above. Signed by Connor Kim DO 11/15/2016 06:03 P
[2016-11-15] MEDS: ATORVASTATIN 20 MG TAB PO SCH (20:21)
[2016-11-15] MEDS: TAMSULOSIN 0.4 MG CAP PO SCH (20:21)
[2016-11-15] MEDS: CIPROFLOXACIN 500 MG TAB PO SCH (23:22)
[2016-11-16] MEDS: NS 1,000 ML IV SCH ×4 (00:30→21:32)
[2016-11-16 04:00] VITALS: BP 134/77
[2016-11-16 05:36] LABS: MEAN CORPUSCULAR HEMOGLOBIN 31.2 pg (27.0-33.0); MEAN CORPUSCULAR HGB CONC 33.5 g/dl (32.0-36.5); MEAN CORPUSCULAR VOLUME 93.3 fl (80.0-96.0); WHITE BLOOD COUNT 11.8 K/mm3 (4.0-10.0)
[2016-11-16 05:56] LABS: ALBUMIN 2.2 GM/DL (3.2-5.2); ALBUMIN/GLOBULIN RATIO 0.54 (1.00-1.93); ALKALINE PHOSPHATASE 100 U/L (45-117); ALT/SGPT 26 U/L (12-78); ANION GAP 6 MEQ/L (8-16); AST/SGOT 22 U/L (15-37); BILIRUBIN,TOTAL 0.8 MG/DL (0.2-1.0); BLOOD UREA NITROGEN 21 MG/DL (7-18); CARBON DIOXIDE LEVEL 24 MEQ/L (21-32); CHLORIDE LEVEL 108 MEQ/L (98-107); CREATININE FOR GFR 1.08 MG/DL (0.70-1.30); GLOMERULAR FILTRATION RATE > 60.0 (>42); GLUCOSE, FASTING 128 MG/DL (83-110); POTASSIUM SERUM 4.1 MEQ/L (3.5-5.1); SODIUM LEVEL 138 MEQ/L (136-145); TOTAL PROTEIN 6.3 GM/DL (6.4-8.2)
[2016-11-16 08:00] VITALS: BP 136/70
[2016-11-16] MEDS: METOPROLOL TART 25 MG TABLET PO SCH ×2 (08:40→21:31)
[2016-11-16] MEDS: CIPROFLOXACIN 500 MG TAB PO SCH ×2 (08:40→21:30)
[2016-11-16] MEDS: FINASTERIDE 5 MG TAB PO SCH (08:40)
[2016-11-16] MEDS ORDERED: MOM 30ML SUSPENSION UDC PO PRN (11:45)
[2016-11-16 12:15] VITALS: BP 142/78
[2016-11-16] MEDS: DOCUSATE SODIUM 100 MG CAP PO SCH ×2 (14:57→21:30)
[2016-11-16] MEDS: MIRALAX *UNIT DOSE* 17GM PACKET PO SCH ×2 (14:57→21:30)
[2016-11-16 15:30] VITALS: BP 145/78
--- NOTE | 2016-11-16 15:34 | IPNPDOC ---
Text Note Date of Service The patient was seen on 11/16/16. NOTE Subjective: Denies any complaints. No abdominal pain. No nausea or vomiting. Still has mild hematuria. Objective: Vitals: (see below) General: No acute distress, laying comfortably in bed. HEENT: Moist mucous membranes. Neck: No JVD or lymphadenopathy Cardiac: RRR, No murmurs Pulm: Clear to auscultation b/l. No wheezing, rhonchi Abd: NT/ND + BS Ext: No edema or cyanosis Iverson with mild hematuria. No clots. Labs (see below) Images: Assessment/Plan 1. Gross hematuria with recent self-catheterization. Patient had been on Pradaxa and effient, which are currently on hold as the patient continues to have hematuria. Patient did go to the or with urology on 11/14/16 for cystoscopy , evacuation of clots, fulguration, and he tolerated it well. Continued on bladder irrigation given continued hematuria. Hemodynamically stable. Hemoglobin had dropped from 13.6-8.9, transfused 2 units of PRBC 11/15/16. Will likely need to Iverson in place upon discharge for follow-up with outpatient urology. Spoke with Dr. Shepard - plan for TURP on Monday. 2. Acute on chronic kidney injury- improved. Iverson in place. Avoid nephrotoxins. 3. Atrial fibrillation with rapid ventricular response- metoprolol taste tartrate and increased dose. Asymptomatic. Patient aware of increased risk of stroke as his Pradaxa is on hold. 4. History of CAD status post CABG- Effient on hold given hematuria. Denies any chest pain or palpitations. Continue metoprolol and statin. 5. History of CHF- compensated. 6. Hypertension- stable. 7. Hyperlipidemia- on statin DVT prophy: SCDs Pt is medically optimized for TURP on Monday. VS,Fishbone, I+O VS, Fishbone, I+O Laboratory Tests 11/16/16 05:11 Red Blood Count 3.49 L, Mean Corpuscular Volume 93.3, Mean Corpuscular Hemoglobin 31.2, Mean Corpuscular Hemoglobin Concent 33.5, Red Cell Distribution Width 14.0, Calcium Level 8.0 L, Aspartate Amino Transf (AST/SGOT) 22, Alanine Aminotransferase (ALT/SGPT) 26, Alkaline Phosphatase 100, Total Bilirubin 0.8, Total Protein 6.3 L, Albumin 2.2 L Vital Signs Date Time Temp Pulse Resp B/P (MAP) Pulse Ox O2 Delivery O2 Flow Rate FiO2 11/16/16 12:15 98.7 78 22 142/78 (99) 96 Room Air 11/14/16 12:20 2 I&O- Last 24 Hours up to 6 AM 11/16/16 06:00 Intake Total 3320 ml Output Total 1250 ml Balance 2070 ml DEVAN MICHEL MD November 16, 2016 15:34
--- NOTE | 2016-11-16 16:09 | REP ---
TRANSRECTAL PROSTATE ULTRASOUND: Transrectal prostate ultrasound performed. The prostate is enlarged and heterogeneous in echotexture. It measures 5.6 x 6.9 x 3.7 cm for a total volume of 74.7 mL. No peripheral zone mass is visualized. IMPRESSION: Prostate is enlarged as discussed above. No definite peripheral zone mass. Signed by Jonh Jerry MD 11/17/2016 07:08 P
--- NOTE | 2016-11-16 17:03 | IPN ---
DATE: 11/16/2016 Germán is a 76-year-old gentleman with significant benign prostatic hypertrophy (BPH) and urinary retention who had attempted clean intermittent catheterization, but this caused gross hematuria. He had been on Effient and Pradaxa and was seen in consultation by Dr. Hussein Haile on 11/11/2016. A 3-way Iverson catheter was placed, and he was started on continuous bladder irrigation. He was then brought to the operating room on 11/14/2016 after the bleeding continued for cystoscopy and clot irrigation. Dr. Haile found that there were multiple false passages in the urethra from attempted catheterizations and that there was also significant trilobar prostatic hypertrophy with a very large median lobe. The patient and Dr. Haile had discussed a transurethral resection of the prostate. Mr. Holguin had been being seen in the office, and he voids approximately 989 mL, postvoid residuals as high as 737 mL. He has not had urodynamic studies done. He also has a history of elevated prostate-specific antigen (PSA) levels, and his last PSA was 7.27 on 11/04/2016. He did have an outside PSA level prior to this that was 8, and looking back at PSAs, since 2011 his PSAs have ranged from 6.45-8.40 in October 2013. He did have prostate biopsies approximately 10 years ago. He also was found to have a complex cyst on a renal ultrasound. A CT scan was done on 11/15/2016 without then followed with contrast. The cyst measured 4.1 cm and its greatest diameter, and there was no enhancement or anything that made it look too complex. It was consistent with a Bosniak class II cyst. They still do recommend followup. His urinary bladder showed bladder wall thickening, and there was prostatomegaly. PHYSICAL EXAMINATION: He is on continuous bladder irrigation (CBI) now, and the urine was still light red, and he did have some clots last night. He has no costovertebral angle (CVA) tenderness, and his abdomen was otherwise soft and nontender. DISCUSSION: The patient would be interested in having a transurethral resection of the prostate while he is still an inpatient. We discussed, though, that it would be important to see the size of his prostate, especially with the elevated PSA levels, and if the size is not significantly enlarged, then he may require either an MRI or another prostate biopsy. I am also slightly concerned about the false passages, since this can make it hard to recatheterize him until this is healed after the transurethral resection of the prostate. We will gather all the information, though, and then decide whether it is safe to proceed, since he has been off his Effient and Pradaxa now for 5 days. We also asked for medical clearance today. LABORATORY DATA: His hemoglobin and hematocrit today are 10.9/32.6, and this is after 2 units of packed red blood cells yesterday. His white blood count is 11.8. His creatinine is 1.08, and his final urine and blood cultures show no growth. IMPRESSION: 1. Gross hematuria in a patient who was started on clean intermittent catheterization (CIC) because of urinary retention secondary to significant benign prostatic hypertrophy (BPH) with multiple urethral false passages status post cystoscopy and clot irrigation on 11/14/[address] Haile. 2. History of BPH, started on finasteride and Flomax several weeks ago in a patient who voids approximately 989 mL with postvoid residuals as high as 737 mL. 3. 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 4. Patient who has been on both Pradaxa and Effient with a history of atrial fibrillation and coronary artery disease with multiple cardiac stents and also a history of cardiac bypass surgery. 5. History of significantly elevated PSA level since at least 2012 in our computer, up to 8.4, now 7.27, and this has ranged from 6-8 over the years. PLAN: 1. Obtain a prostate ultrasound today to get some idea of the size of the prostate to see if he even would be a candidate for a transurethral resection of the prostate. 2. Continue continuous bladder irrigation and supportive care at this time, and we will continue to follow him and decide the best next step in his treatment plan.
[2016-11-16 20:00] VITALS: BP 129/62
[2016-11-16] MEDS: TAMSULOSIN 0.4 MG CAP PO SCH (21:30)
[2016-11-16] MEDS: ATORVASTATIN 20 MG TAB PO SCH (21:32)
[2016-11-17] VITALS (7 sets, daily range): BP systolic 117–143; BP diastolic 63–81; PULSE 82
[2016-11-17] MEDS: NS 1,000 ML IV SCH ×2 (06:03→17:25)
[2016-11-17 06:24] LABS: MEAN CORPUSCULAR HEMOGLOBIN 31.9 pg (27.0-33.0); MEAN CORPUSCULAR HGB CONC 34.3 g/dl (32.0-36.5); RED CELL DISTRIBUTION WIDTH 14.2 % (11.5-14.5); WHITE BLOOD COUNT 10.5 K/mm3 (4.0-10.0)
[2016-11-17 06:40] LABS: ALBUMIN/GLOBULIN RATIO 0.54 (1.00-1.93); ALKALINE PHOSPHATASE 102 U/L (45-117); ALT/SGPT 31 U/L (12-78); ANION GAP 9 MEQ/L (8-16); AST/SGOT 27 U/L (15-37); BILIRUBIN,TOTAL 0.6 MG/DL (0.2-1.0); BLOOD UREA NITROGEN 20 MG/DL (7-18); CALCIUM LEVEL 7.5 MG/DL (8.8-10.2); CARBON DIOXIDE LEVEL 20 MEQ/L (21-32); CHLORIDE LEVEL 108 MEQ/L (98-107); CREATININE FOR GFR 1.02 MG/DL (0.70-1.30); GLOMERULAR FILTRATION RATE > 60.0 (>42); GLUCOSE, FASTING 126 MG/DL (83-110); POTASSIUM SERUM 4.1 MEQ/L (3.5-5.1); SODIUM LEVEL 137 MEQ/L (136-145); TOTAL PROTEIN 5.7 GM/DL (6.4-8.2)
[2016-11-17] MEDS: MIRALAX *UNIT DOSE* 17GM PACKET PO SCH ×2 (09:00→21:00)
--- NOTE | 2016-11-17 10:01 | IPN ---
DATE OF SERVICE: 11/17/2016 Mr. Holguin is still on continuous bladder irrigation, and his urine is light pink without any significant clots overnight. We did a transrectal ultrasound yesterday, and his prostatic volume is 74.7 grams. His hemoglobin is still dropping, and today his hemoglobin and hematocrit is 9.7 over 27. We spent at least 45 minutes today discussing these issues. I had reviewed his office notes, and he has a very large bladder capacity. We discussed that normally we do like to do urodynamic studies prior to a transurethral resection of the prostate, but at this point, we really would like to get him out of the hospital. I just wanted him to clearly understand that after a transurethral resection of prostate (TURP) that he can continue to have problems with urinary retention and/or urinary urgency and urge incontinence because of long-term bladder issues from long-term obstruction. We also discussed that there is a small possibility of prostate cancer, and if we do not do biopsies first and we do the transurethral resection of the prostate, that this may be an extra operation. We discussed different options for prostate cancer, including watchful waiting, de Belen assisted laparoscopic prostatectomies, and radiation therapy. Even if he chose radiation therapy, he would need something done for the prostatic obstruction first. At this point, he clearly understands all the risks and benefits but would still like to proceed with the TURP tomorrow, understanding that there may be need for significant intervention still in the future. We discussed the major risks of the procedure, which included but was not limited to the risks of general anesthesia, reactions to medication, bleeding, infection, injury to the urinary sphincter, incontinence either by stress incontinence and/or urgency or urge incontinence, continued urinary retention, possibility of prostate cancer requiring further surgical management in the future, and continued bleeding requiring further blood transfusions. At this point, informed consent was obtained in both verbal and written form. PHYSICAL EXAMINATION He is afebrile. His blood pressure is 143/81, and his respiratory rate is 20, and his pulse is 95. He is on continuous bladder irrigation (CBI), and the urine is still light red without any significant clots. He has no costovertebral angle (CVA) tenderness, and his abdomen is soft and nontender without any rebound, guarding, or masses. LABORATORY DATA: His white blood count is 10.5, hemoglobin and hematocrit is 9.3 over 27. His BUN and creatinine is 20 over 1.02. Transrectal ultrasound of the prostate showed a volume of 74.7 mL. There were no peripheral zone masses seen, but the prostate was enlarged and heterogeneous in echotexture. IMPRESSION: 1. Urinary retention with benign prostatic hypertrophy (BPH) with a large median lobe. 2. Significant gross hematuria despite being off his blood thinners and on continuous bladder irrigation, even requiring blood transfusion. 3. Complex 4.1 cm renal cyst on the left side, which is a Bosniak II. 4. History of benign prostatic hypertrophy, on finasteride and Flomax started several weeks ago with a very large bladder capacity. 5. History of significantly elevated prostate-specific antigen (PSA) level since 2012 with a history of a transrectal ultrasound and a prostate biopsy years ago, which was negative. 6. Significant coronary artery disease in a patient who has been on Pradaxa and Effient but has been off now for 5 days today. PLAN: 1. Nothing by mouth after midnight, and we will start sequential compression devices and thromboembolic deterrent (JOSE ALBERTO) stockings. 2. Ancef 2 grams, converting supervisor to the operating room (OR). 3. Plan a transurethral resection of the prostate tomorrow. 4. 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
[2016-11-17] MEDS: FINASTERIDE 5 MG TAB PO SCH (10:10)
[2016-11-17] MEDS: CIPROFLOXACIN 500 MG TAB PO SCH ×2 (10:10→21:43)
[2016-11-17] MEDS: DOCUSATE SODIUM 100 MG CAP PO SCH ×2 (10:11→21:00)
[2016-11-17] MEDS: METOPROLOL TART 25 MG TABLET PO SCH ×2 (10:12→21:46)
--- NOTE | 2016-11-17 14:19 | IPNPDOC ---
Text Note Date of Service The patient was seen on 11/17/16. NOTE Subjective: Denies any complaints. No abdominal pain. No nausea or vomiting. Still has mild hematuria. Objective: Vitals: (see below) General: No acute distress, laying comfortably in bed. HEENT: Moist mucous membranes. Neck: No JVD or lymphadenopathy Cardiac: RRR, No murmurs Pulm: Clear to auscultation b/l. No wheezing, rhonchi Abd: NT/ND + BS Ext: No edema or cyanosis Iverson with mild hematuria. No clots. Labs (see below) Images: Assessment/Plan 1. Gross hematuria with recent self-catheterization. Patient had been on Pradaxa and effient, which are currently on hold as the patient continues to have hematuria. Patient did go to the or with urology on 11/14/16 for cystoscopy , evacuation of clots, fulguration, and he tolerated it well. Continued on bladder irrigation given continued hematuria. Hemodynamically stable. Hemoglobin had dropped from 13.6-8.9, transfused 2 units of PRBC 11/15/16. Will likely need to Iverson in place upon discharge for follow-up with outpatient urology. Spoke with Dr. Shepard - plan for TURP on Monday. 2. Acute on chronic kidney injury- improved. Iverson in place. Avoid nephrotoxins. 3. Atrial fibrillation with controlled ventricular rate- cont metoprolol . Asymptomatic. Patient aware of increased risk of stroke as his Pradaxa is on hold. Will restart after TURP, as pt continues to have hematuria, requiring 2U PRBC on 11/15. 4. History of CAD status post CABG- Effient on hold given hematuria. Denies any chest pain or palpitations. Continue metoprolol and statin. 5. History of CHF- compensated. 6. Hypertension- stable. 7. Hyperlipidemia- on statin DVT prophy: SCDs Pt is medically optimized for TURP on Monday. RCRI score 2, 6.6% risk of major cardiac event. Pt has >4 MET at baseline. No CP/palpitations. VS,Fishbone, I+O VS, Fishbone, I+O Laboratory Tests 11/17/16 05:52 Red Blood Count 2.90 L, Mean Corpuscular Volume 93.0, Mean Corpuscular Hemoglobin 31.9, Mean Corpuscular Hemoglobin Concent 34.3, Red Cell Distribution Width 14.2, Calcium Level 7.5 L, Aspartate Amino Transf (AST/SGOT) 27, Alanine Aminotransferase (ALT/SGPT) 31, Alkaline Phosphatase 102, Total Bilirubin 0.6, Total Protein 5.7 L, Albumin 2.0 L Vital Signs Date Time Temp Pulse Resp B/P (MAP) Pulse Ox O2 Delivery O2 Flow Rate FiO2 11/17/16 11:30 97.8 75 20 123/70 (87) 99 Room Air 11/14/16 12:20 2 I&O- Last 24 Hours up to 6 AM 11/17/16 05:59 Intake Total 63326 ml Output Total 01156 ml Balance -485 ml DEVAN MICHEL MD Nov 17, 2016 14:19
[2016-11-17] MEDS: ATORVASTATIN 20 MG TAB PO SCH (21:43)
[2016-11-17] MEDS: TAMSULOSIN 0.4 MG CAP PO SCH (21:43)
[2016-11-17] MEDS ORDERED: zolPIDEM TARTRATE 5 MG TAB PO ONE (22:45)
[2016-11-18] VITALS (10 sets, daily range): BP systolic 121–174; BP diastolic 63–83; PULSE 75–92
[2016-11-18 05:53] LABS: MEAN CORPUSCULAR HEMOGLOBIN 31.4 pg (27.0-33.0); MEAN CORPUSCULAR HGB CONC 33.4 g/dl (32.0-36.5); MEAN CORPUSCULAR VOLUME 93.8 fl (80.0-96.0); RED CELL DISTRIBUTION WIDTH 14.1 % (11.5-14.5); WHITE BLOOD COUNT 11.8 K/mm3 (4.0-10.0)
[2016-11-18 06:20] LABS: ALKALINE PHOSPHATASE 104 U/L (45-117); ALT/SGPT 43 U/L (12-78); ANION GAP 7 MEQ/L (8-16); AST/SGOT 33 U/L (15-37); BILIRUBIN,TOTAL 0.6 MG/DL (0.2-1.0); BLOOD UREA NITROGEN 19 MG/DL (7-18); CARBON DIOXIDE LEVEL 20 MEQ/L (21-32); CHLORIDE LEVEL 112 MEQ/L (98-107); CREATININE FOR GFR 1.01 MG/DL (0.70-1.30); GLOMERULAR FILTRATION RATE > 60.0 (>42); GLUCOSE, FASTING 125 MG/DL (83-110); POTASSIUM SERUM 4.2 MEQ/L (3.5-5.1); SODIUM LEVEL 139 MEQ/L (136-145)
[2016-11-18] MEDS: DOCUSATE SODIUM 100 MG CAP PO SCH ×2 (09:00→21:00)
[2016-11-18] MEDS: MIRALAX *UNIT DOSE* 17GM PACKET PO SCH ×2 (09:00→21:00)
[2016-11-18] MEDS: FINASTERIDE 5 MG TAB PO SCH (09:03)
[2016-11-18] MEDS: METOPROLOL TART 25 MG TABLET PO SCH ×2 (09:03→22:54)
[2016-11-18] MEDS: CIPROFLOXACIN 500 MG TAB PO SCH ×2 (09:04→22:48)
--- NOTE | 2016-11-18 12:55 | IPNPDOC ---
Text Note Date of Service The patient was seen on 11/18/16. NOTE Subjective: Denies any complaints. Objective: Vitals: (see below) General: No acute distress, laying comfortably in bed. HEENT: Moist mucous membranes. Neck: No JVD or lymphadenopathy Cardiac: RRR, No murmurs Pulm: Clear to auscultation b/l. No wheezing, rhonchi Abd: NT/ND + BS Ext: No edema or cyanosis Iverson with mild hematuria. No clots. Labs (see below) Images: Assessment/Plan 1. Gross hematuria with recent self-catheterization. Patient had been on Pradaxa and effient, which are currently on hold as the patient continues to have hematuria. Patient did go to the or with urology on 11/14/16 for cystoscopy , evacuation of clots, fulguration, and he tolerated it well. Continued on bladder irrigation given continued hematuria. Hemodynamically stable. Hemoglobin had dropped from 13.6-8.9, transfused 2 units of PRBC 11/15/16. Will likely need to Iverson in place upon discharge for follow-up with outpatient urology. Spoke with Dr. Shepard - plan for TURP on today. 2. Acute on chronic kidney injury- improved. Iverson in place. Avoid nephrotoxins. 3. Atrial fibrillation with controlled ventricular rate- cont metoprolol . Asymptomatic. Patient aware of increased risk of stroke as his Pradaxa is on hold. Will restart after TURP, as pt continues to have hematuria, requiring 2U PRBC on 11/15. 4. History of CAD status post CABG- Effient on hold given hematuria. Denies any chest pain or palpitations. Continue metoprolol and statin. 5. History of CHF- compensated. 6. Hypertension- stable. 7. Hyperlipidemia- on statin DVT prophy: SCDs Pt is medically optimized for TURP on Monday. RCRI score 2, 6.6% risk of major cardiac event. Pt has >4 MET at baseline. No CP/palpitations. VS,Fishbone, I+O VS, Fishbone, I+O Laboratory Tests 11/18/16 05:24 Red Blood Count 3.08 L, Mean Corpuscular Volume 93.8, Mean Corpuscular Hemoglobin 31.4, Mean Corpuscular Hemoglobin Concent 33.4, Red Cell Distribution Width 14.1, Calcium Level 8.0 L, Aspartate Amino Transf (AST/SGOT) 33, Alanine Aminotransferase (ALT/SGPT) 43, Alkaline Phosphatase 104, Total Bilirubin 0.6, Total Protein 6.0 L, Albumin 2.0 L Vital Signs Date Time Temp Pulse Resp B/P (MAP) Pulse Ox O2 Delivery O2 Flow Rate FiO2 11/18/16 09:03 76 137/74 11/18/16 07:55 97.8 18 99 Room Air 11/14/16 12:20 2 I&O- Last 24 Hours up to 6 AM 11/18/16 06:00 Intake Total 6920 ml Output Total 5252 ml Balance 1668 ml DEVAN MICHEL MD Nov 18, 2016 12:55
[2016-11-18] MEDS: NS 1,000 ML IV SCH ×2 (14:41→22:52)
[2016-11-18] MEDS ORDERED: fentaNYL 100 MCG/2 ML INJECTION (J3010) As Ordered ONE ×2 (15:53→16:54)
[2016-11-18] MEDS ORDERED: MIDAZOLAM INJ 2 MG/2 ML VIAL (J2250) As Ordered ONE (15:53)
[2016-11-18] MEDS ORDERED: PHENYLephrine HCL 500 MCG/5 ML (100MCG/ML) SYRINGE (J2370) As Ordered ONE (16:30)
[2016-11-18] MEDS ORDERED: NEOSTIGMINE 1MG/ML 5 ML SYRINGE (J2710) As Ordered ONE (16:51)
[2016-11-18] MEDS ORDERED: ONDANSETRON 4MG/2ML VIAL (J2405) As Ordered ONE (16:52)
[2016-11-18] MEDS ORDERED: GLYCOPYRROLATE INJ 0.2 MG/ML 2 ML VIAL As Ordered ONE (16:52)
[2016-11-18] MEDS ORDERED: ceFAZolin 2 GM/D5W 50 ML IV BAG (J0690) As Ordered ONE (17:27)
[2016-11-18] MEDS ORDERED: ROCURONIUM BROMIDE 50 MG/5 ML VIAL As Ordered ONE (17:33)
[2016-11-18] MEDS ORDERED: LR 1,000 ML IV SCH (20:15)
[2016-11-18] MEDS ORDERED: fentaNYL 100 MCG/2 ML INJECTION (J3010) IV PRN (20:15)
[2016-11-18] MEDS ORDERED: ONDANSETRON 4MG/2ML VIAL (J2405) IV PRN (20:15)
[2016-11-18] MEDS: ATORVASTATIN 20 MG TAB PO SCH (22:48)
[2016-11-18] MEDS: TAMSULOSIN 0.4 MG CAP PO SCH (22:48)
[2016-11-19] VITALS (13 sets, daily range): BP systolic 99–156; BP diastolic 58–91; PULSE 81–105
[2016-11-19] MEDS ORDERED: BELLADONNA ALKALOIDS/OPIUM SUPP PR PRN (00:30)
[2016-11-19] MEDS ORDERED: zolPIDEM TARTRATE 10MG TAB PO PRN (00:30)
[2016-11-19] MEDS: NS 1,000 ML IV SCH ×3 (03:00→20:49)
[2016-11-19 05:49] LABS: MEAN CORPUSCULAR HEMOGLOBIN 30.8 pg (27.0-33.0); MEAN CORPUSCULAR HGB CONC 32.4 g/dl (32.0-36.5); MEAN CORPUSCULAR VOLUME 94.9 fl (80.0-96.0); RED CELL DISTRIBUTION WIDTH 14.1 % (11.5-14.5)
[2016-11-19 06:20] LABS: ALBUMIN 1.9 GM/DL (3.2-5.2); ALBUMIN/GLOBULIN RATIO 0.51 (1.00-1.93); ALKALINE PHOSPHATASE 91 U/L (45-117); ALT/SGPT 37 U/L (12-78); ANION GAP 9 MEQ/L (8-16); AST/SGOT 23 U/L (15-37); BILIRUBIN,TOTAL 0.7 MG/DL (0.2-1.0); BLOOD UREA NITROGEN 19 MG/DL (7-18); CALCIUM LEVEL 7.7 MG/DL (8.8-10.2); CARBON DIOXIDE LEVEL 19 MEQ/L (21-32); CHLORIDE LEVEL 113 MEQ/L (98-107); CREATININE FOR GFR 1.19 MG/DL (0.70-1.30); GLOMERULAR FILTRATION RATE > 60.0 (>42); GLUCOSE, FASTING 156 MG/DL (83-110); POTASSIUM SERUM 4.5 MEQ/L (3.5-5.1); SODIUM LEVEL 141 MEQ/L (136-145); TOTAL PROTEIN 5.6 GM/DL (6.4-8.2)
[2016-11-19] MEDS: METOPROLOL TART 25 MG TABLET PO SCH (08:30)
[2016-11-19] MEDS: MIRALAX *UNIT DOSE* 17GM PACKET PO SCH ×3 (08:31→23:56)
[2016-11-19] MEDS: FINASTERIDE 5 MG TAB PO SCH (08:31)
[2016-11-19] MEDS: DOCUSATE SODIUM 100 MG CAP PO SCH ×3 (08:31→23:55)
[2016-11-19] MEDS: CIPROFLOXACIN 500 MG TAB PO SCH ×2 (09:17→20:48)
[2016-11-19] MEDS ORDERED: TORSEMIDE 20 MG TAB PO ONE (09:30)
--- NOTE | 2016-11-19 11:37 | RO ---
DATE OF PROCEDURE: 11/11/2016 PREPROCEDURE DIAGNOSES: Persistent gross hematuria, benign prostatic hypertrophy (BPH) with urinary retention, and elevated PSA level. POSTPROCEDURE DIAGNOSES: Persistent gross hematuria, benign prostatic hypertrophy (BPH) with urinary retention, and elevated PSA level. Findings of severe chronic prostatitis. PROCEDURE: Cystoscopy and saline transurethral resection of the prostate. SURGEON: Dr. Erin Shepard ANESTHESIA: General. MEDICATIONS: Ciprofloxacin preoperatively. DRAINS: #24-Maltese three-way Iverson catheter. SPECIMENS: Prostatic chips. FINDINGS: Significant findings of chronic prostatitis even with areas of purulent pockets in the prostate and significant bleeding. INDICATIONS FOR PROCEDURE: The patient is a 76-year-old gentleman who was admitted to the hospital on 11/11/2016 after he had been seen in our office and found to be in urinary retention. He did not want a Iverson catheter placed so he was taught how to do clean intermittent catheterization. With this, he was having trouble and began having gross hematuria, so he was admitted to the hospital where a Iverson catheter was placed and he was started on continuous bladder irrigation. He also was on Effient and Pradaxa for cardiac issues with a history of atrial fibrillation and severe coronary artery disease status post multiple stents and a coronary artery bypass graft (CABG). He was brought to the operating room by Dr. Hussein Haile, who was the covering physician on 11/15/[address] Haile found some false passages from placing the catheter and also significant obstructing prostate with a very large median lobe obstructing the bladder outlet. After long discussion with the patient because he continued to have to be on continuous bladder irrigation, it was decided to bring him to the operating room and do a transurethral resection of the prostate. We did discuss that with this elevated PSA levels that he could have prostate cancer and also that we usually like to do urodynamic studies prior to the procedure with the large bladder capacity he had preoperatively, but felt that this was more urgent in nature and it was decided to proceed. DESCRIPTION OF PROCEDURE: The patient was brought into the operating room. Sequential compression devices and JOSE ALBERTO stockings were placed. General anesthesia was induced. He was then placed in the lithotomy position and careful attention was paid that his pressure points were well padded and protected. Next, a #26-Maltese continuous flow resectoscope was inserted under direct vision. His prostatic urethra was at least 3.5 cm in length with significant trilobular obstruction with a very high bladder neck. The bladder neck was so high that it was very difficult to get into the bladder and I could not even see the ureteral orifices. At this point, I began resection at the 6 o'clock position, first resecting the whole base of the prostate. He was noted to have bleeding every where that was resected also with some purulent pockets of pus and very abnormal tissue. I continued the resection in a circumferential fashion and tried to obtain hemostasis whenever I could. At the conclusion of the procedure, the entire distal prostatic channel was open and he still had some tissue around the verumontanum, but I did not want to resect this completely since I did not have very good visualization, and I did not want to harm his urinary sphincter. I hand irrigated multiple prostatic chips and hemostasis was obtained as best as possible. There was quite a lot of clotting and when I placed a catheter in the operating room his urine seemed to be clearing. It was then decided to leave a #24-Maltese three-way Iverson catheter and return him to the recovery room in stable condition, understanding that further management may be necessary in the future.
--- NOTE | 2016-11-19 12:07 | IPNPDOC ---
Text Note Date of Service The patient was seen on 11/19/16. NOTE Subjective: Had TURP yesterday. Required 1U PRBC overnight. Objective: Vitals: (see below) General: No acute distress, laying comfortably in bed. HEENT: Moist mucous membranes. Neck: No JVD or lymphadenopathy Cardiac: RRR, No murmurs Pulm: Clear to auscultation b/l. No wheezing, rhonchi Abd: NT/ND + BS Ext: No edema or cyanosis Iverson with mild hematuria. No clots. Labs (see below) Images: Assessment/Plan 1. Gross hematuria with recent self-catheterization. Patient had been on Pradaxa and effient, which are currently on hold as the patient continues to have hematuria. Patient did go to the or with urology on 11/14/16 for cystoscopy , evacuation of clots, fulguration, and he tolerated it well. Continued on bladder irrigation given continued hematuria. Hemodynamically stable. Hemoglobin had dropped from 13.6-8.9, transfused 2 units of PRBC 11/15/16. Will likely need to Iverson in place upon discharge for follow-up with outpatient urology. s/p TURP on 11/18/16. 2. Acute on chronic kidney injury- improved. Iverson in place. Avoid nephrotoxins. 3. Atrial fibrillation with controlled ventricular rate- cont metoprolol . Asymptomatic. Patient aware of increased risk of stroke as his Pradaxa is on hold. Will restart after TURP, as pt continues to have hematuria. Will give another 1U PRBC. Total of 5U PRBC today. 4. History of CAD status post CABG- Effient on hold given hematuria. Denies any chest pain or palpitations. Continue metoprolol and statin. 5. History of CHF- compensated. 6. Hypertension- stable. 7. Hyperlipidemia- on statin DVT prophy: SCDs VS,Fishbone, I+O VS, Fishbone, I+O Laboratory Tests 11/19/16 05:23 Red Blood Count 2.73 L, Mean Corpuscular Volume 94.9, Mean Corpuscular Hemoglobin 30.8, Mean Corpuscular Hemoglobin Concent 32.4, Red Cell Distribution Width 14.1, Calcium Level 7.7 L, Aspartate Amino Transf (AST/SGOT) 23, Alanine Aminotransferase (ALT/SGPT) 37, Alkaline Phosphatase 91, Total Bilirubin 0.7, Total Protein 5.6 L, Albumin 1.9 L Vital Signs Date Time Temp Pulse Resp B/P (MAP) Pulse Ox O2 Delivery O2 Flow Rate FiO2 11/19/16 08:30 81 99/58 11/19/16 08:00 96.6 18 97 Room Air 11/18/16 19:10 2 I&O- Last 24 Hours up to 6 AM 11/19/16 06:00 Intake Total 2850 ml Output Total 3675 ml Balance -825 ml DEVAN MICHEL MD Nov 19, 2016 12:07
--- NOTE | 2016-11-19 19:29 | IPN ---
DATE: 11/19/2016 Mr. Holguin is still in continuous bladder irrigation and had quite bloody urine last night requiring multiple clot irrigations. The catheter was changed, though, in the middle of the night and since then, it seems that the urine is light pink on continuous bladder irrigation without any further clotting. He has been afebrile. His blood pressure is 110/64. His pulse is 90. His respiratory rate is 20. His intake and output (I and O) are difficult to understand because of the continuous bladder irrigation. He has no costovertebral angle (CVA) tenderness. His abdomen is soft and nontender and his Iverson is now draining light pink urine on low continuous bladder irrigation without clots. His extremities show no cyanosis, clubbing or edema, although he does have some swelling of his right knee, which he has had for several days now and believes that it is gouty arthritis. LABORATORY DATA: His hemoglobin and hematocrit (H and H) this morning was 8.4 over 25.9, and he did receive 2 units of packed red blood cells. His BUN is 19 and his creatinine is 1.19. IMPRESSION: 1. Postoperative day #1 of a transurethral resection of the prostate (TURP) found to have significant bleeding and evidence of prostatitis and significant obstructive uropathy with a large median lobe to patient with heart disease on blood thinners, now off for the last six days. 2. History of urinary retention secondary to benign prostatic hypertrophy (BPH) and gross hematuria. PLAN: 1. Continue continuous bladder irrigation. 2. Transfuse the patient as needed. 3. Continue medical management, including finasteride and tamsulosin for now. 4. 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
[2016-11-19] MEDS: ATORVASTATIN 20 MG TAB PO SCH (20:48)
[2016-11-19] MEDS: TAMSULOSIN 0.4 MG CAP PO SCH (20:48)
[2016-11-19] MEDS ORDERED: METOPROLOL TART 25 MG TABLET PO SCH (21:00)
[2016-11-20] VITALS: BP 119/69; PULSE 73
[2016-11-20 04:00] VITALS: BP 130/80; PULSE 73
[2016-11-20 05:34] LABS: ALBUMIN 1.9 GM/DL (3.2-5.2); ALBUMIN/GLOBULIN RATIO 0.56 (1.00-1.93); ALKALINE PHOSPHATASE 82 U/L (45-117); ALT/SGPT 27 U/L (12-78); ANION GAP 7 MEQ/L (8-16); AST/SGOT 20 U/L (15-37); BILIRUBIN,TOTAL 0.5 MG/DL (0.2-1.0); BLOOD UREA NITROGEN 23 MG/DL (7-18); CALCIUM LEVEL 7.3 MG/DL (8.8-10.2); CARBON DIOXIDE LEVEL 22 MEQ/L (21-32); CHLORIDE LEVEL 111 MEQ/L (98-107); CREATININE FOR GFR 1.16 MG/DL (0.70-1.30); GLOMERULAR FILTRATION RATE > 60.0 (>42); GLUCOSE, FASTING 121 MG/DL (83-110); POTASSIUM SERUM 3.9 MEQ/L (3.5-5.1); SODIUM LEVEL 140 MEQ/L (136-145); TOTAL PROTEIN 5.3 GM/DL (6.4-8.2)
[2016-11-20 08:00] VITALS: BP 144/72; PULSE 91
[2016-11-20] MEDS ORDERED: POTASSIUM CHLORIDE 10 MEQ SR TABLET PO ONE (09:30)
[2016-11-20 09:53] LABS: MAGNESIUM LEVEL 2.2 MG/DL (1.8-2.4)
[2016-11-20] MEDS: CIPROFLOXACIN 500 MG TAB PO SCH ×2 (10:29→20:56)
[2016-11-20] MEDS: DOCUSATE SODIUM 100 MG CAP PO SCH ×2 (10:30→20:56)
[2016-11-20] MEDS: TORSEMIDE 20 MG TAB PO SCH (10:30)
[2016-11-20] MEDS: FINASTERIDE 5 MG TAB PO SCH (10:31)
[2016-11-20] MEDS: METOPROLOL TART 25 MG TABLET PO SCH ×2 (10:33→20:58)
[2016-11-20] MEDS: MIRALAX *UNIT DOSE* 17GM PACKET PO SCH ×2 (10:33→20:56)
[2016-11-20 12:00] VITALS: BP 132/72; PULSE 83
[2016-11-20 12:26] LABS: BASO % 0.3 % (0.0-1.0); EOS # 0.5 K/mm3 (0.0-0.50); EOS % 3.4 % (0.0-3.0); LARGE UNSTAINED CELL # 0.1 K/mm3 (0.0-0.4); LARGE UNSTAINED CELL % 0.8 % (0.0-4.0); LYMPH # 1.2 K/mm3 (1.5-4.5); LYMPH % 7.6 % (24.0-44.0); MEAN CORPUSCULAR HEMOGLOBIN 30.3 pg (27.0-33.0); MEAN CORPUSCULAR VOLUME 91.8 fl (80.0-96.0); MONO # 0.9 K/mm3 (0.0-0.8); MONO % 6.5 % (0.0-5.0); NEUTROPHILS # 11.6 K/mm3 (1.8-7.7); NEUTROPHILS % 81.3 % (36.0-66.0); PLATELET COUNT, AUTOMATED 325 k/mm3 (150-450); RED CELL DISTRIBUTION WIDTH 15.1 % (11.5-14.5); WHITE BLOOD COUNT 14.3 K/mm3 (4.0-10.0)
--- NOTE | 2016-11-20 14:22 | IPNPDOC ---
Text Note Date of Service The patient was seen on 11/20/16. NOTE Subjective: Had TURP Monday. Still has hematuria, which he states is mildly improved. Objective: Vitals: (see below) General: No acute distress, laying comfortably in bed. HEENT: Moist mucous membranes. Neck: No JVD or lymphadenopathy Cardiac: RRR, No murmurs Pulm: Diminished breath sounds at the bases. b/l. No wheezing, rhonchi Abd: NT/ND + BS Ext: 1+ pitting edema BLE. No cyanosis Iverson with mild hematuria. No clots. Labs (see below) Images: Assessment/Plan 1. Gross hematuria with recent self-catheterization. Patient had been on Pradaxa and effient, which are currently on hold as the patient continues to have hematuria. Patient did go to the or with urology on 11/14/16 for cystoscopy , evacuation of clots, fulguration, and he tolerated it well. Continued on bladder irrigation given continued hematuria. Hemodynamically stable. Hemoglobin had dropped from 13.6-8.9, transfused 2 units of PRBC 11/15/16. Will likely need to Iverson in place upon discharge for follow-up with outpatient urology. s/p TURP on 11/18/16. 2. Acute on chronic kidney injury- improved. Iverson in place. Avoid nephrotoxins. 3. Atrial fibrillation with controlled ventricular rate- cont metoprolol . Asymptomatic. Patient aware of increased risk of stroke as his Pradaxa/effient are on hold. Will restart after TURP, as pt continues to have hematuria. Total of 6U PRBC since admission. Pt wants to hold off on anticoagulation at this time , and I will speak with his manager oncology Dr. Olmedo in [place] tomorrow, as pt requests, since he knows his case. I spoke to Dr. Olmedo's partner on 11/20 who also recommended holding anticoagulation given significant hematuria. 4. History of CAD status post CABG- Effient on hold given hematuria. Denies any chest pain or palpitations. Continue metoprolol and statin. 5. History of CHF- has fluid retention after blood transfusion. Will restart torsemide as BP stable. 6. NSVT - 3 beats - Replaced K/Mg. Increase BB dose. Echo ordered. 6. Hypertension- stable. 7. Hyperlipidemia- on statin DVT prophy: SCDs Prognosis guarded. VS,Fishbone, I+O VS, Fishbone, I+O Laboratory Tests 11/19/16 14:55 11/20/16 04:50 Calcium Level 7.3 L, Aspartate Amino Transf (AST/SGOT) 20, Alanine Aminotransferase (ALT/SGPT) 27, Alkaline Phosphatase 82, Total Bilirubin 0.5, Total Protein 5.3 L, Albumin 1.9 L 11/20/16 11:55 Red Blood Count 2.93 L, Mean Corpuscular Volume 91.8, Mean Corpuscular Hemoglobin 30.3, Mean Corpuscular Hemoglobin Concent 33.0, Red Cell Distribution Width 15.1 H, Neutrophils (%) (Auto) 81.3 H, Lymphocytes (%) (Auto ) 7.6 L, Monocytes (%) (Auto) 6.5 H, Eosinophils (%) (Auto) 3.4 H, Basophils (% ) (Auto) 0.3, Neutrophils # (Auto) 11.6 H, Lymphocytes # (Auto) 1.2 L, Monocytes # (Auto) 0.9 H, Eosinophils # (Auto) 0.5, Basophils # (Auto) 0.0 Vital Signs Date Time Temp Pulse Resp B/P (MAP) Pulse Ox O2 Delivery O2 Flow Rate FiO2 11/20/16 12:00 97.9 85 18 132/72 (92) 98 Room Air 11/18/16 19:10 2 I&O- Last 24 Hours up to 6 AM 11/20/16 06:00 Intake Total 1760 ml Output Total 850 ml Balance 910 ml DEVAN MICHEL MD Nov 20, 2016 14:22
[2016-11-20] MEDS ORDERED: POLYVINYL ALCOHOL OPHTH SOLN 15 ML(LIQUITEARS) OU PRN (14:30)
--- NOTE | 2016-11-20 15:05 | IPN ---
DATE: 11/20/2016 Postoperative day #2, transurethral resection of prostate (TURP) in a patient who has received a total 5 units of packed red blood cells now with a stable hemoglobin overnight and the urine a very light pink on low continuous bladder irrigation without need of evacuation of clots overnight. The patient is without complaints except for some change in his eyesite, which he thinks is due to a cataract. He is getting stir crazy in the hospital but otherwise is feeling well. He is afebrile. His blood pressure is 132/72 and his pulse is 85. His pulse ox is 98% on room air. His input and output yesterday were 2570 intake with an output of 850 mL. He has no costovertebral angle tenderness. His abdomen is soft and nontender. His extremities showed his knees are less swollen and he thinks that this was gouty arthritis. He has no CVA tenderness. LABORATORY DATA His white blood count is elevated at 14.3 but this is down from 18,000 yesterday. His hemoglobin and hematocrit are 8.9 over 26.9 and his platelets at 325. His BUN is 23 and his creatinine is 1.16. His blood in urine cultures had shown no growth from 11/15/2016. IMPRESSION: 1. Postop day #2 TURP now with the urine finally starting to clear. 2. History of urinary retention secondary to benign prostatic hypertrophy (BPH) and gross hematuria. Found to have a very large median lobe and findings of prostatitis. 3. Significant coronary artery disease in a patient who has been on Pradaxa and Effient, currently on hold, also with a atrial fibrillation on metoprolol. 4. Elevated white blood count, slowly coming down and this was most likely from chronic prostatitis and areas of purulence within his prostatic fossa. PLAN: The patient is having an echo today and Dr. Kilpatrick is going to try to contact his dry roller in [place] to decide what to do with the anticoagulation once the patient's urine continues to be clear. At this point, continue continuous bladder irrigation and medical management.
[2016-11-20 16:00] VITALS: BP 115/67; PULSE 83
[2016-11-20] MEDS: NS 1,000 ML IV SCH ×2 (16:16→20:55)
[2016-11-20 20:00] VITALS: BP 112/63; PULSE 79
[2016-11-20] MEDS: TAMSULOSIN 0.4 MG CAP PO SCH (20:56)
[2016-11-20] MEDS: ATORVASTATIN 20 MG TAB PO SCH (20:56)
[2016-11-21] VITALS (9 sets, daily range): BP systolic 105–145; BP diastolic 52–88; PULSE 76–88
[2016-11-21] MEDS: NS 1,000 ML IV SCH (02:00)
--- NOTE | 2016-11-21 05:46 | ECHO ---
DATE OF PROCEDURE: 11/20/2016 REFERRING PHYSICIAN: Dr. Kilpatrick. INDICATION: Congestive heart failure. HEIGHT: 188 cm. WEIGHT: 119 kg. DIMENSION: IVS: 1.2 LV: 6.2 LVPW: 1.2 LA: 4.6 Aorta: 3.7 The study is of good technical quality. The patient is in atrial fibrillation. Left ventricle is mildly dilated but there is overall preserved contractility and I estimate EF approximately 60%. Mild LVH is noted. The right ventricle does not appear enlarged. Both atria are severely enlarged. Aortic valve has three cusps. It is heavily sclerotic and there is some restriction of leaflet mobility. Mitral valve exhibits also degenerative abnormalities with mitral annular calcifications and thickening of mitral leaflets. At least minimal restriction of leaflet mobility is preserved. Tricuspid and pulmonic valves appear normal. No pericardial effusion is noted. Inferior vena cava is markedly dilated and there is no appreciable collapse with respiration indicative of very high central venous pressure. Aortic root is on upper limits of normal size, probably normal for patient's body habitus. Aortic arch appears normal. Abdominal aorta was not visualized. Doppler interrogation of aortic valve reveals no insufficiency and mild stenosis. Peak gradient across the valve was 18 and mean gradient 11 mmHg. There is approximately moderate mitral insufficiency and fairly trivial mitral stenosis with mean transmitral gradient 4 mmHg. There is at least moderate, but probably severe tricuspid insufficiency. Calculated pulmonary artery pressure was at least in 50s which would correspond to moderate or potentially moderately severe pulmonary hypertension. Pulmonic valve is functionally competent. Evaluation of diastolic function is inconclusive due to underlying atrial fibrillation. CONCLUSIONS: 1. Study is of good technical quality. 2. Dilated left ventricle with mild LVH but overall preserved LV systolic function. 3. Heavily calcified aortic valve resulting in mild stenosis. 4. Degenerative abnormalities of mitral valve with resulting mild stenosis and approximately moderate insufficiency. 5. Likely severe tricuspid insufficiency. 6. High central venous pressure. 7. At least moderate pulmonary hypertension. 8. Severe biatrial enlargement consistent with likely chronic atrial fibrillation. COMMENT: SBE prophylaxis is not recommended. MTDD
[2016-11-21 07:55] LABS: MEAN CORPUSCULAR HEMOGLOBIN 29.8 pg (27.0-33.0); MEAN CORPUSCULAR HGB CONC 32.2 g/dl (32.0-36.5); MEAN CORPUSCULAR VOLUME 92.6 fl (80.0-96.0); RED CELL DISTRIBUTION WIDTH 14.6 % (11.5-14.5); WHITE BLOOD COUNT 17.4 K/mm3 (4.0-10.0)
[2016-11-21 07:57] LABS: ALBUMIN 2.1 GM/DL (3.2-5.2); ALBUMIN/GLOBULIN RATIO 0.58 (1.00-1.93); ALKALINE PHOSPHATASE 95 U/L (45-117); ALT/SGPT 32 U/L (12-78); ANION GAP 10 MEQ/L (8-16); AST/SGOT 28 U/L (15-37); BILIRUBIN,TOTAL 0.5 MG/DL (0.2-1.0); BLOOD UREA NITROGEN 22 MG/DL (7-18); CALCIUM LEVEL 7.5 MG/DL (8.8-10.2); CARBON DIOXIDE LEVEL 21 MEQ/L (21-32); CHLORIDE LEVEL 110 MEQ/L (98-107); CREATININE FOR GFR 1.08 MG/DL (0.70-1.30); GLOMERULAR FILTRATION RATE > 60.0 (>42); GLUCOSE, FASTING 107 MG/DL (83-110); POTASSIUM SERUM 3.9 MEQ/L (3.5-5.1); SODIUM LEVEL 141 MEQ/L (136-145); TOTAL PROTEIN 5.7 GM/DL (6.4-8.2)
[2016-11-21] MEDS: TORSEMIDE 20 MG TAB PO SCH (08:06)
[2016-11-21] MEDS: DOCUSATE SODIUM 100 MG CAP PO SCH ×2 (08:06→21:07)
[2016-11-21] MEDS: METOPROLOL TART 25 MG TABLET PO SCH ×2 (08:09→21:07)
[2016-11-21] MEDS: MIRALAX *UNIT DOSE* 17GM PACKET PO SCH ×2 (08:10→21:08)
[2016-11-21] MEDS: FINASTERIDE 5 MG TAB PO SCH (08:10)
[2016-11-21 09:35] LABS: BASOPHILS 1 % (0-4)
[2016-11-21] MEDS ORDERED: POTASSIUM CHLORIDE 10 MEQ SR TABLET PO ONE (10:00)
[2016-11-21] MEDS: CIPROFLOXACIN 500 MG TAB PO SCH ×2 (10:31→21:07)
[2016-11-21 11:19] LABS: INR 1.21
--- NOTE | 2016-11-21 11:35 | IPNPDOC ---
Text Note Date of Service The patient was seen on 11/21/16. NOTE Subjective:Still has mild hematuria, improving. Objective: Vitals: (see below) General: No acute distress, laying comfortably in bed. HEENT: Moist mucous membranes. Neck: No JVD or lymphadenopathy Cardiac: RRR, No murmurs Pulm: Diminished breath sounds at the bases. b/l. No wheezing, rhonchi Abd: NT/ND + BS Ext: 1+ pitting edema BLE. No cyanosis Iverson with mild hematuria. No clots. Labs (see below) Images: Echo 11/20/16 CONCLUSIONS: 1. Study is of good technical quality. 2. Dilated left ventricle with mild LVH but overall preserved LV systolic function. Severe biatrial enlargement. Heavily calcified aortic valve resulting in mild stenosis. Degenerative abnormalities of mitral valve with resulting mild stenosis and approximately moderate insufficiency. Likely severe tricuspid insufficiency. 3. High central venous pressure. 4. At least moderate pulmonary hypertension. 5. Severe biatrial enlargement consistent with likely chronic atrial fibrillation. Assessment/Plan 1. Gross hematuria with recent self-catheterization. Patient had been on Pradaxa and effient, which are currently on hold as the patient continues to have hematuria. Patient did go to the or with urology on 11/14/16 for cystoscopy , evacuation of clots, fulguration, and he tolerated it well. Continued on bladder irrigation given continued hematuria. Hemodynamically stable. Hemoglobin had dropped from 13.6-8.9, transfused 2 units of PRBC 11/15/16. Will likely need to Iverson in place upon discharge for follow-up with outpatient urology. s/p TURP on 11/18/16. 2U ordered 11/[address] Shepard. 2. Acute on chronic kidney injury- improved. Iverson in place. Avoid nephrotoxins. 3. Atrial fibrillation with controlled ventricular rate- cont metoprolol . Asymptomatic. Patient aware of increased risk of stroke as his Pradaxa/effient are on hold. Will restart after TURP, as pt continues to have hematuria. Total of 6U PRBC since admission. Pt wants to hold off on anticoagulation at this time , and I will speak with his water mangle tender Dr. Olmedo in [place] tomorrow, as pt requests, since he knows his case. I spoke to Dr. Olmedo on 11/21 and updated him on the patient's status, with recommendations to start ASA 81mg daily now, and if patient does not continue to bleed on ASA, to start Eliquis 2.5mg BID, and f/u with his PCP for closer observation when d/c, which will both take place of the effient and pradaxa. 4. History of CAD status post CABG and PCI- Effient on hold given hematuria. Denies any chest pain or palpitations. Continue metoprolol and statin. ASA today per Dr. Olmedo, and will continue to observe for bleeding. 5. History of CHF- has fluid retention after blood transfusion. Will restart torsemide as BP stable. 6. NSVT - 3 beats - Goal K>4, Mg>2. Increase BB dose. Echo (see above) 6. Hypertension- stable. 7. Hyperlipidemia- on statin DVT prophy: SCDs Prognosis guarded. VS,Fishbone, I+O VS, Fishbone, I+O Laboratory Tests 11/20/16 11:55 Red Blood Count 2.93 L, Mean Corpuscular Volume 91.8, Mean Corpuscular Hemoglobin 30.3, Mean Corpuscular Hemoglobin Concent 33.0, Red Cell Distribution Width 15.1 H, Neutrophils (%) (Auto) 81.3 H, Lymphocytes (%) (Auto ) 7.6 L, Monocytes (%) (Auto) 6.5 H, Eosinophils (%) (Auto) 3.4 H, Basophils (% ) (Auto) 0.3, Neutrophils # (Auto) 11.6 H, Lymphocytes # (Auto) 1.2 L, Monocytes # (Auto) 0.9 H, Eosinophils # (Auto) 0.5, Basophils # (Auto) 0.0 11/21/16 04:35 Calcium Level 7.5 L, Aspartate Amino Transf (AST/SGOT) 28, Alanine Aminotransferase (ALT/SGPT) 32, Alkaline Phosphatase 95, Total Bilirubin 0.5, Total Protein 5.7 L, Albumin 2.1 L Vital Signs Date Time Temp Pulse Resp B/P (MAP) Pulse Ox O2 Delivery O2 Flow Rate FiO2 11/21/16 08:09 101 119/88 11/21/16 07:59 Room Air 11/21/16 07:50 98.8 18 96 11/18/16 19:10 2 I&O- Last 24 Hours up to 6 AM 11/21/16 06:00 Intake Total 3780 ml Output Total 8775 ml Balance -4995 ml DEVAN MICHEL MD Nov 21, 2016 11:35
[2016-11-21] MEDS ORDERED: TORSEMIDE 10 MG TABLET PO ONE (12:00)
[2016-11-21] MEDS: ASPIRIN 81 MG ENTERIC TAB PO SCH (13:05)
--- NOTE | 2016-11-21 13:57 | IPN ---
DATE: 11/21/2016 Mr. Holguin is comfortable and his urine has actually been clear overnight on very low continuous bladder irrigation (CBI) without any clots. He is afebrile. His blood pressure is 119/88. His pulse is 123. He has no CVA tenderness. His abdomen is soft and nontender. His extremities show no cyanosis, clubbing or edema. The urine is clear on low CBI. LABORATORY DATA: When I first saw him this morning, this was still pending, but his H/H came back at 8.4/26.1 and his platelets are 359,000. I ordered a PT/PTT and these are still elevated at 15.4 and 31 with an INR of 1.21. His BUN is 22 and his creatinine is 1.08. IMPRESSIONS: 1. Postoperative day #3 transurethral resection of the prostate. Found to have significant chronic prostatitis and significant bleeding, now with the urine clear on low dose CBI without any further clots, but still with a drop last night in his H/H. 2. History of urinary retention secondary to benign prostatic hypertrophy (BPH) and gross hematuria, found to a very large median lobe and a longstanding history of an elevated PSA level with a negative transrectal ultrasound and prostate biopsies many years ago. 3. Significant coronary artery disease in a patient who has been on Pradaxa and Effient. Currently on hold, but still with an elevated INR and continued bleeding. 4. Elevated white blood count post procedurally, now still coming down, and this is secondary to chronic prostatitis with areas of purulence within the prostatic fossa. PLAN: 1. Transfuse two more units of packed red blood cells, especially because of the elevated heart rate and his coronary artery disease. 2. Monorail Crane Operator to be contacted today by Dr. Kilpatrick. 3. Awaiting bleeding time. 4. Confused. 5. Continuous bladder irrigation, but try to turn this down and eventually off if the bleeding stops.
[2016-11-21] MEDS: TAMSULOSIN 0.4 MG CAP PO SCH (21:06)
[2016-11-21] MEDS: ATORVASTATIN 20 MG TAB PO SCH (21:06)
[2016-11-21] MEDS ORDERED: SLF 3 ML SYR IV PRN (23:00)
[2016-11-22 04:57] VITALS: BP 137/66
[2016-11-22] MEDS: SLF 3 ML SYR IV SCH ×3 (06:04→21:21)
[2016-11-22 06:09] LABS: BASO % 0.3 % (0.0-1.0); EOS # 0.4 K/mm3 (0.0-0.50); EOS % 3.2 % (0.0-3.0); LARGE UNSTAINED CELL # 0.1 K/mm3 (0.0-0.4); LARGE UNSTAINED CELL % 1.1 % (0.0-4.0); LYMPH # 1.4 K/mm3 (1.5-4.5); LYMPH % 10.4 % (24.0-44.0); MEAN CORPUSCULAR HEMOGLOBIN 30.2 pg (27.0-33.0); MEAN CORPUSCULAR HGB CONC 33.3 g/dl (32.0-36.5); MEAN CORPUSCULAR VOLUME 90.6 fl (80.0-96.0); MONO # 0.9 K/mm3 (0.0-0.8); NEUTROPHILS # 9.5 K/mm3 (1.8-7.7); PLATELET COUNT, AUTOMATED 385 k/mm3 (150-450); RED CELL DISTRIBUTION WIDTH 15.4 % (11.5-14.5); WHITE BLOOD COUNT 12.2 K/mm3 (4.0-10.0)
[2016-11-22 06:37] LABS: ALBUMIN 2.2 GM/DL (3.2-5.2); ALBUMIN/GLOBULIN RATIO 0.58 (1.00-1.93); ALKALINE PHOSPHATASE 94 U/L (45-117); ALT/SGPT 30 U/L (12-78); ANION GAP 7 MEQ/L (8-16); AST/SGOT 26 U/L (15-37); BILIRUBIN,TOTAL 0.7 MG/DL (0.2-1.0); BLOOD UREA NITROGEN 20 MG/DL (7-18); CALCIUM LEVEL 7.7 MG/DL (8.8-10.2); CARBON DIOXIDE LEVEL 26 MEQ/L (21-32); CHLORIDE LEVEL 107 MEQ/L (98-107); CREATININE FOR GFR 1.18 MG/DL (0.70-1.30); GLOMERULAR FILTRATION RATE > 60.0 (>42); GLUCOSE, FASTING 113 MG/DL (83-110); MAGNESIUM LEVEL 2.1 MG/DL (1.8-2.4); POTASSIUM SERUM 3.7 MEQ/L (3.5-5.1); SODIUM LEVEL 140 MEQ/L (136-145)
[2016-11-22 08:00] VITALS: BP 120/71
--- NOTE | 2016-11-22 09:11 | IPN ---
DATE OF SERVICE: 11/22/2016 Mr. Holguin has been on very low continuous bladder irrigation (CBI). They did try to turn it off last night, but it got darker again. He has had no blood clots. He is resting more comfortably. His maximum temperature (Tmax) was 99.5, blood pressure 137/66. His abdomen is soft and nontender His extremities show no significant cyanosis, clubbing, or edema, and the CBI is off now, and the urine is getting darker but without any clots. LABORATORY DATA His white blood count is down from yesterday at 17.4 to 12.2 today. His hemoglobin and hematocrit are stable from yesterday after 2 units of packed red blood cells. It was 10.1 over 29.4 at 1818; and at 0551, it was 10.1 over 30.3. A urine culture is pending, and pathology is still pending. IMPRESSION: 1. Postoperative day #4, transurethral resection of prostate (TURP). Still on low CBI but without any further blood clots, and his hemoglobin and hematocrit has been stable since yesterday afternoon. 2. History of urinary retention secondary to benign prostatic hypertrophy (BPH) and gross hematuria. Found to have a very large median lobe and a longstanding history of an elevated prostate-specific antigen (PSA) level with a negative transrectal ultrasound and prostate biopsy many years ago bu with findings of chronic prostatitis. 3. Significant coronary artery disease in a patient who has been on Pradaxa and Effient but has been off for at least 7 days. He is now on low-dose aspirin, and discussion has started with his marketing team lead how to manage this in the upcoming future. 4. Elevated white blood count postprocedurally, which had a rise yesterday but is now 12, and this is secondary to chronic prostatitis with areas of purulence within the prostatic fossa. PLAN: Continue supportive care and CBI as necessary, but if the bleeding does not stop, then the patient may need a re-look in the operating room but at this point seems stable. I will be signing this patient out to Dr. Arriaza today.
[2016-11-22] MEDS: METOPROLOL TART 25 MG TABLET PO SCH ×2 (09:26→21:21)
[2016-11-22] MEDS: CIPROFLOXACIN 500 MG TAB PO SCH ×2 (09:26→21:20)
[2016-11-22] MEDS: TORSEMIDE 20 MG TAB PO SCH (09:26)
[2016-11-22] MEDS: ASPIRIN 81 MG ENTERIC TAB PO SCH (09:26)
[2016-11-22] MEDS: MIRALAX *UNIT DOSE* 17GM PACKET PO SCH ×2 (09:26→21:00)
[2016-11-22] MEDS: FINASTERIDE 5 MG TAB PO SCH (09:30)
[2016-11-22] MEDS: DOCUSATE SODIUM 100 MG CAP PO SCH ×2 (09:30→21:19)
[2016-11-22 11:40] VITALS: BP 132/68
[2016-11-22 16:00] VITALS: BP 130/60
--- NOTE | 2016-11-22 17:18 | IPN ---
DATE: 11/22/2016 SUBJECTIVE: The patient is seen and examined in the room today. The patient has been very irritated regarding his prolonged hospitalization. He really wants to go despite that he continues to have a blood clot in the urine and there are multiple medical issues that are not optimized. No overnight events reported. OBJECTIVE: VITAL SIGNS: Temperature is 96.8, pulse is 84, respiratory rate 18, blood pressure is 120/71, pulse oximetry is 98% on room air. GENERAL: Irritable, no sign of acute distress, alert and oriented times three. HEENT: Normocephalic, atraumatic. Extraocular motor grossly intact. CARDIOVASCULAR: Positive S1, S2, irregularly irregular. LUNGS: Clear to auscultation bilaterally. ABDOMEN: Soft, nontender, nondistended. Bowel sounds present. No rebound. No guarding. EXTREMITIES: Trace edema bilaterally. No sign of cyanosis. GENITOURINARY: There are blood clots in the Iverson bag. LABORATORY DATA: WBC is 12.2, hemoglobin 10.1, hematocrit 30.3, platelet count is 385. Sodium is 140, potassium 3.7, chloride is 107, carbon dioxide 26, BUN 20, creatinine 1.18, GFR greater than 60, fasting glucose 113, calcium 7.7, magnesium 2.2, total bilirubin 0.7, AST 26, ALT 30, alkaline phosphatase is 94, total protein is 6, albumin 2.2. ASSESSMENT AND PLAN: 1. Gross hematuria with recent self-catheterizations. The patient was on Pradaxa and Effient. Both agents are on hold and urology has been consulted. The patient had a transurethral resection of the prostate (TURP) by Dr. Shepard on 2016. We appreciate urology's assistance. The patient has a history of coronary artery disease with multiple stents and the patient also has atrial fibrillation. We have reached out to the patient's radio mechanic apprentice, Mr. Olmedo, who recommends starting a baby aspirin for now and the patient will start on low-dose anticoagulation therapy if the patient does not have any continued bleeding in the urinary tract. We will continue to follow with Dr. Olmedo with regards to the recommendations. Since admission, the patient had a total of eight packed red blood cell transfusions. The most recent transfusion was on 11/21/2016. The patient received two packed red blood cell. 2. Acute on chronic kidney injury. Iverson is in place. The patient's renal function has improved. 3. Atrial fibrillation. The patient is currently on metoprolol. Due to the current bleeding, the patient's anticoagulation has been on hold. If the patient can remain bleeding free, the patient will start on Eliquis 2.5 mg twice a day per radio mechanic apprentice's recommendations. 4. History of coronary artery disease, status post coronary artery bypass graft (CABG) and percutaneous coronary intervention (PCI). Effient is on hold due to hematuria. The patient is on baby aspirin per Dr. Olmedo's recommendations. 5. History of congestive heart failure. No sign of fluid overload at this moment. 6. Nonsustained ventricular tachycardia. No recurrence observed on telemetry. 7. Hypertension, stable. 8. Dyslipidemia, on statin. 9. History of urinary retention, secondary to benign prostatic hypertrophy (BPH) , status post TURP. The patient is on finasteride and Flomax. We appreciate urology's assistance. 10. Prostatitis. On cipro. 11. Deep vein thrombosis (DVT) prophylaxis. Due to acute bleeding, no anticoagulation is warranted at this moment. The patient is on thromboembolic-deterrent stockings (TEDS) and sequential compression device. [facility]
[2016-11-22 19:14] VITALS: BP 118/67
[2016-11-22] MEDS: ATORVASTATIN 20 MG TAB PO SCH (21:19)
[2016-11-22] MEDS: TAMSULOSIN 0.4 MG CAP PO SCH (21:21)
[2016-11-22 23:25] VITALS: BP 101/65
[2016-11-23] MEDS: ACETAMINOPHEN TAB 650MG DOSE (2X325MG) PO PRN ×4 (00:12→23:18)
[2016-11-23] MEDS: diphenhydrAMINE 25 MG CAP PO PRN (00:55)
[2016-11-23 03:32] VITALS: BP 120/72
[2016-11-23] MEDS: SLF 3 ML SYR IV SCH ×3 (04:19→21:12)
[2016-11-23 05:34] LABS: BASO % 0.3 % (0.0-1.0); EOS # 0.3 K/mm3 (0.0-0.50); EOS % 2.6 % (0.0-3.0); LARGE UNSTAINED CELL # 0.2 K/mm3 (0.0-0.4); LARGE UNSTAINED CELL % 1.3 % (0.0-4.0); LYMPH # 1.6 K/mm3 (1.5-4.5); LYMPH % 11.9 % (24.0-44.0); MEAN CORPUSCULAR HGB CONC 33.1 g/dl (32.0-36.5); MEAN CORPUSCULAR VOLUME 90.5 fl (80.0-96.0); MONO # 0.7 K/mm3 (0.0-0.8); MONO % 5.4 % (0.0-5.0); NEUTROPHILS # 9.6 K/mm3 (1.8-7.7); NEUTROPHILS % 78.4 % (36.0-66.0); PLATELET COUNT, AUTOMATED 384 k/mm3 (150-450); WHITE BLOOD COUNT 12.2 K/mm3 (4.0-10.0)
[2016-11-23 06:01] LABS: ALBUMIN 2.1 GM/DL (3.2-5.2); ALBUMIN/GLOBULIN RATIO 0.58 (1.00-1.93); BILIRUBIN,TOTAL 0.6 MG/DL (0.2-1.0); CALCIUM LEVEL 7.6 MG/DL (8.8-10.2); CREATININE FOR GFR 1.28 MG/DL (0.70-1.30); GLOMERULAR FILTRATION RATE 58.2 (>42); MAGNESIUM LEVEL 2.1 MG/DL (1.8-2.4); POTASSIUM SERUM 3.6 MEQ/L (3.5-5.1); TOTAL PROTEIN 5.7 GM/DL (6.4-8.2)
[2016-11-23 08:00] VITALS: BP 135/77
[2016-11-23] MEDS: ALLOPURINOL 100 MG TAB PO SCH (08:34)
[2016-11-23] MEDS: TORSEMIDE 20 MG TAB PO SCH (08:35)
[2016-11-23] MEDS: DOCUSATE SODIUM 100 MG CAP PO SCH ×2 (08:35→21:18)
[2016-11-23] MEDS: ASPIRIN 81 MG ENTERIC TAB PO SCH (08:35)
[2016-11-23] MEDS: FINASTERIDE 5 MG TAB PO SCH (08:35)
[2016-11-23] MEDS: MIRALAX *UNIT DOSE* 17GM PACKET PO SCH ×2 (08:35→21:17)
[2016-11-23] MEDS: METOPROLOL TART 25 MG TABLET PO SCH ×2 (08:36→21:18)
[2016-11-23 09:30] LABS: URIC ACID 7.2 MG/DL (3.5-7.2)
[2016-11-23] MEDS: CIPROFLOXACIN 500 MG TAB PO SCH ×2 (09:34→21:18)
[2016-11-23 12:00] VITALS: BP 116/56
--- NOTE | 2016-11-23 13:56 | IPNPDOC ---
Assessment/Plan Date Seen The patient was seen on 11/23/16. Patient Summary This is a 76 y/o M w/ BPH and prostatitis, POD5 s/p cysto w/ TURP. His Hb is stable. The hematuria is slowly improving w/ minimal CBI going. Plan/VTE VTE Prophylaxis Ordered?: Yes VTE Exclusion Mechanical Proph: N/A:VTE Prophy Ordered Plan/Urinary Catheter Urinary Catheter: Other Catheter: (catheter needs to remain in place given recent TURP and gross hematuria) Plan - stop CBI and plug the irrigation port - manually irrigate the catheter w/ normal saline as needed - ok to continue baby aspirin would recommend against resuming any other anticoagulation for at least 1 week - continue antibiotics for prostatits - if catheter drains fine for 24 hrs w/ no addition irrigation needed and labs remain stable, he can be discharged tomorrow w/ the catheter in place Subjective Review oF Systems Chief Complaint The patient is a 76-year-old male admitted with a reason for visit of Gross Hematuria. Events since Last Encounter No acute event o/n. The patient noted that he required manual irrigation once w / a small amount of normal saline last night. Otherwise, the catheter has flowed fine. He has no pain. He denies fevers. Objective Physical Examination General Exam: Alert, Cooperative, No Acute Distress ABDOMEN EXAM: Soft Psych Exam: Mental status NL Other physical findings 3-way catheter in place, w/ CBI on very minimal drip and catheter draining light red urine w/ no clots Vital Signs/I&O Vital Signs Date Time Temp Pulse Resp B/P (MAP) Pulse Ox O2 Delivery O2 Flow Rate FiO2 11/23/16 12:00 97.8 75 18 116/56 (76) 98 Room Air 11/18/16 19:10 2 I&O- Last 24 Hours up to 6 AM 11/23/16 06:00 Intake Total 2090 ml Output Total 2695 ml Balance -605 ml Laboratory Data Labs 24H Laboratory Tests 2 11/23/16 05:13: White Blood Count 12.2H, Red Blood Count 3.20L, Hemoglobin 9.6L, Hematocrit 29.0L, Mean Corpuscular Volume 90.5, Mean Corpuscular Hemoglobin 30.0, Mean Corpuscular Hemoglobin Concent 33.1, Red Cell Distribution Width 15.0H, Platelet Count 384, Neutrophils (%) (Auto) 78.4H, Lymphocytes (%) (Auto) 11.9L, Monocytes (%) (Auto) 5.4H, Eosinophils (%) (Auto) 2.6, Basophils (%) (Auto) 0.3 , Neutrophils # (Auto) 9.6H, Lymphocytes # (Auto) 1.6, Monocytes # (Auto) 0.7, Eosinophils # (Auto) 0.3, Basophils # (Auto) 0.0, Large Unclassified Cells % 1.3 , Large Unclassified Cells # 0.2, Anion Gap 8, Glomerular Filtration Rate 58.2, Blood Urea Nitrogen 22H, Creatinine 1.28, Sodium Level 139, Potassium Level 3.6 , Chloride Level 107, Carbon Dioxide Level 24, Calcium Level 7.6L, Aspartate Amino Transf (AST/SGOT) 21, Alanine Aminotransferase (ALT/SGPT) 29, Alkaline Phosphatase 94, Total Bilirubin 0.6, Uric Acid 7.2, Total Protein 5.7L, Albumin 2.1L, Magnesium Level 2.1, Albumin/Globulin Ratio 0.58L CBC/BMP Laboratory Tests 11/23/16 05:13 Red Blood Count 3.20 L, Mean Corpuscular Volume 90.5, Mean Corpuscular Hemoglobin 30.0, Mean Corpuscular Hemoglobin Concent 33.1, Red Cell Distribution Width 15.0 H, Neutrophils (%) (Auto) 78.4 H, Lymphocytes (%) (Auto ) 11.9 L, Monocytes (%) (Auto) 5.4 H, Eosinophils (%) (Auto) 2.6, Basophils (%) (Auto) 0.3, Neutrophils # (Auto) 9.6 H, Lymphocytes # (Auto) 1.6, Monocytes # ( Auto) 0.7, Eosinophils # (Auto) 0.3, Basophils # (Auto) 0.0, Calcium Level 7.6 L , Aspartate Amino Transf (AST/SGOT) 21, Alanine Aminotransferase (ALT/SGPT) 29, Alkaline Phosphatase 94, Total Bilirubin 0.6, Uric Acid 7.2, Total Protein 5.7 L , Albumin 2.1 L Microbiology Microbiology 11/15/16 Blood Culture - Final, Complete NO GROWTH AFTER 5 DAYS 11/15/16 Blood Culture - Final, Complete NO GROWTH AFTER 5 DAYS 11/13/16 Blood Culture - Final, Complete NO GROWTH AFTER 5 DAYS 11/13/16 Blood Culture - Final, Complete NO GROWTH AFTER 5 DAYS 11/21/16 Urine Culture - Final, Complete 11/13/16 Urine Culture - Final, Complete URIEL CEBALLOS MD Nov 23, 2016 13:56
[2016-11-23 16:00] VITALS: BP 107/58
--- NOTE | 2016-11-23 16:03 | IPN ---
DATE: 11/23/2016 SUBJECTIVE: The patient is seen and examined in the room today. The patient still continues to have some mild blood clot seen in the urine bag. No overnight events reported. OBJECTIVE: VITAL SIGNS: Temperature is 96.7, pulse is 72, respirations 18, blood pressure is 135/77, pulse oximetry is 97% on room air. GENERAL: No sign of acute distress, alert and oriented times three. HEENT: Normocephalic, atraumatic. Extraocular motor grossly intact. CARDIOVASCULAR: Irregularly, irregular. Positive S1, S2. LUNGS: Clear to auscultation bilaterally. ABDOMEN: Soft, nontender, nondistended. Bowel sounds present. No rebound. No guarding. EXTREMITIES: Trace edema bilaterally. No sign of cyanosis. GENITOURINARY: There are some blood clots in the Iverson bag. LABORATORY DATA: WBC is 12.2, hemoglobin 9.6, hematocrit 29, platelet count is 384. Sodium is 139, potassium 3.6, chloride 107, carbon dioxide 24, BUN 22, creatinine 1.28, GFR is 58.2, fasting glucose 110, uric acid is 7.2, calcium is 7.6, magnesium 2.1, total bilirubin 0.6, AST 21, ALT 29, alkaline phosphatase is 94, total protein is 5.7, albumin 2.1. ASSESSMENT AND PLAN: 1. Gross hematuria with recent self-catheterization. The patient had a transurethral resection of the prostate (TURP) by Dr. Shepard on 11/18/2016. The patient is followed by Dr. Arriaza inpatient starting today. It is recommended to discontinue the Iverson and the patient's gross hematuria will persist for a few more days. Currently, the patient is on aspirin but it is recommended by urology that Eliquis should be on hold until the bleeding completely resolves. The patient does have a history of coronary artery disease with multiple stents and also has atrial fibrillation. The patient was on Pradaxa and Effient prior to admission. Dr. Olmedo, the patient's petroleum sampler in [place], was contacted previously. He recommended starting aspirin and starting low-dose Eliquis at appropriate time. The patient had the most recent transfusion on 11/21/2016 with two packed red blood cell units. 2. Acute on chronic kidney injury. The patient's renal function has been improved since the Iverson catheter insertion. 3. Atrial fibrillation. Rate controlled with metoprolol. Due to the current bleeding, anticoagulation is on hold. It is recommended that once the patient's hematuria resolves, the patient should be started on Eliquis 2.5 mg twice a day per Dr. Olmedo's recommendations. 4. History of coronary artery disease, status post coronary artery bypass graft (CABG) and percutaneous coronary intervention (PCI). Effient is on hold due to the hematuria. The patient is on baby aspirin per Dr. Olmedo's recommendations. 5. History of congestive heart failure. No sign of fluid overload at this moment. 6. History of nonsustained ventricular tachycardia. No recurrence observed on telemetry. 7. Hypertension, stable. 8. Dyslipidemia, stable. 9. History of urinary retention, secondary to benign prostatic hypertrophy (BPH) , status post TURP. The patient is on finasteride and Flomax. We appreciate urology's assistance. The patient is scheduled to followup in outpatient setting in one week. 10. Prostatitis. On cipro. 11. Deep vein thrombosis (DVT) prophylaxis. Due to acute bleeding, the patient is not on anticoagulation at this moment. The patient is on thromboembolic- deterrent stockings (TEDS) and sequential compression device. MTDD
[2016-11-23 20:00] VITALS: BP 125/73
[2016-11-23] MEDS: ATORVASTATIN 20 MG TAB PO SCH (21:17)
[2016-11-23] MEDS: TAMSULOSIN 0.4 MG CAP PO SCH (21:18)
[2016-11-24] VITALS: BP 141/67
[2016-11-24] MEDS: SLF 3 ML SYR IV SCH ×2 (00:03→14:00)
[2016-11-24] MEDS: diphenhydrAMINE 25 MG CAP PO PRN (01:04)
[2016-11-24 02:38] VITALS: BP 113/65
[2016-11-24 06:00] VITALS: BP 128/74
[2016-11-24 06:33] LABS: BASO % 0.4 % (0.0-1.0); EOS # 0.4 K/mm3 (0.0-0.50); EOS % 3.9 % (0.0-3.0); LARGE UNSTAINED CELL # 0.1 K/mm3 (0.0-0.4); LARGE UNSTAINED CELL % 1.2 % (0.0-4.0); LYMPH # 1.5 K/mm3 (1.5-4.5); LYMPH % 12.9 % (24.0-44.0); MEAN CORPUSCULAR HEMOGLOBIN 29.6 pg (27.0-33.0); MEAN CORPUSCULAR HGB CONC 32.7 g/dl (32.0-36.5); MEAN CORPUSCULAR VOLUME 90.6 fl (80.0-96.0); MONO # 0.6 K/mm3 (0.0-0.8); MONO % 5.1 % (0.0-5.0); NEUTROPHILS # 8.4 K/mm3 (1.8-7.7); NEUTROPHILS % 76.6 % (36.0-66.0); PLATELET COUNT, AUTOMATED 429 k/mm3 (150-450); RED CELL DISTRIBUTION WIDTH 14.7 % (11.5-14.5)
[2016-11-24 06:47] LABS: ALBUMIN 2.2 GM/DL (3.2-5.2); ALBUMIN/GLOBULIN RATIO 0.59 (1.00-1.93); ALKALINE PHOSPHATASE 93 U/L (45-117); ALT/SGPT 25 U/L (12-78); ANION GAP 7 MEQ/L (8-16); AST/SGOT 20 U/L (15-37); BILIRUBIN,TOTAL 0.4 MG/DL (0.2-1.0); BLOOD UREA NITROGEN 23 MG/DL (7-18); CALCIUM LEVEL 7.7 MG/DL (8.8-10.2); CARBON DIOXIDE LEVEL 25 MEQ/L (21-32); CHLORIDE LEVEL 108 MEQ/L (98-107); CREATININE FOR GFR 1.13 MG/DL (0.70-1.30); GLOMERULAR FILTRATION RATE > 60.0 (>42); GLUCOSE, FASTING 100 MG/DL (83-110); MAGNESIUM LEVEL 2.7 MG/DL (1.8-2.4); POTASSIUM SERUM 4.1 MEQ/L (3.5-5.1); SODIUM LEVEL 140 MEQ/L (136-145); TOTAL PROTEIN 5.9 GM/DL (6.4-8.2)
--- NOTE | 2016-11-24 07:44 | IPNPDOC ---
Assessment/Plan Date Seen The patient was seen on 11/24/16. Patient Summary This is a 76 y/o M w/ BPH and prostatitis, POD6 s/p cysto w/ TURP. His Hb is stable but his urine remains hagan red this urine. I irrigated his catheter this morning w/ return of several clots. I suspect his urine will clear up now that the clots have been removed. I will reevaluate him in a few hours and if the urine looks clearer at that time, it should be ok to discharge him home. Plan/VTE VTE Prophylaxis Ordered?: Yes VTE Exclusion Mechanical Proph: N/A:VTE Prophy Ordered Plan/Urinary Catheter Urinary Catheter: Other Catheter: (catheter needs to remain in place given recent TURP and gross hematuria) Plan - continue care per hospitalist service - recommend ASA 81mg only for antiplatelet therapy now - assuming his urine looks clearer later, he can be discharged home w/ the catheter in place w/ f/u next week in our office Subjective Review oF Systems Chief Complaint The patient is a 76-year-old male admitted with a reason for visit of Gross Hematuria. Events since Last Encounter No acute events o/n. Denies pain. Nursing did not need to irrigate the catheter yesterday. Objective Physical Examination General Exam: Alert, Cooperative, No Acute Distress ABDOMEN EXAM: Soft Psych Exam: Mental status NL Other physical findings 3-way catheter in place w/ irrigation port plugged, draining hagan red urine w / no clots Vital Signs/I&O Vital Signs Date Time Temp Pulse Resp B/P (MAP) Pulse Ox O2 Delivery O2 Flow Rate FiO2 11/24/16 06:00 98.5 70 18 128/74 (92) 95 Room Air 11/18/16 19:10 2 I&O- Last 24 Hours up to 6 AM 11/24/16 06:00 Intake Total 2160 ml Output Total 3225 ml Balance -1065 ml Laboratory Data Labs 24H Laboratory Tests 2 11/24/16 06:05: White Blood Count 11.0H, Red Blood Count 3.34L, Hemoglobin 9.9L, Hematocrit 30.3L, Mean Corpuscular Volume 90.6, Mean Corpuscular Hemoglobin 29.6, Mean Corpuscular Hemoglobin Concent 32.7, Red Cell Distribution Width 14.7H, Platelet Count 429, Neutrophils (%) (Auto) 76.6H, Lymphocytes (%) (Auto) 12.9L, Monocytes (%) (Auto) 5.1H, Eosinophils (%) (Auto) 3.9H, Basophils (%) (Auto) 0.4 , Neutrophils # (Auto) 8.4H, Lymphocytes # (Auto) 1.5, Monocytes # (Auto) 0.6, Eosinophils # (Auto) 0.4, Basophils # (Auto) 0.0, Large Unclassified Cells % 1.2 , Large Unclassified Cells # 0.1, Anion Gap 7L, Glomerular Filtration Rate > 60.0, Blood Urea Nitrogen 23H, Creatinine 1.13, Sodium Level 140, Potassium Level 4.1, Chloride Level 108H, Carbon Dioxide Level 25, Calcium Level 7.7L, Aspartate Amino Transf (AST/SGOT) 20, Alanine Aminotransferase (ALT/SGPT) 25, Alkaline Phosphatase 93, Total Bilirubin 0.4, Total Protein 5.9L, Albumin 2.2L, Magnesium Level 2.7H, C-Reactive Protein, Quantitative 3.68H, Albumin/Globulin Ratio 0.59L CBC/BMP Laboratory Tests 11/24/16 06:05 Red Blood Count 3.34 L, Mean Corpuscular Volume 90.6, Mean Corpuscular Hemoglobin 29.6, Mean Corpuscular Hemoglobin Concent 32.7, Red Cell Distribution Width 14.7 H, Neutrophils (%) (Auto) 76.6 H, Lymphocytes (%) (Auto ) 12.9 L, Monocytes (%) (Auto) 5.1 H, Eosinophils (%) (Auto) 3.9 H, Basophils (% ) (Auto) 0.4, Neutrophils # (Auto) 8.4 H, Lymphocytes # (Auto) 1.5, Monocytes # (Auto) 0.6, Eosinophils # (Auto) 0.4, Basophils # (Auto) 0.0, Calcium Level 7.7 L, Aspartate Amino Transf (AST/SGOT) 20, Alanine Aminotransferase (ALT/SGPT) 25 , Alkaline Phosphatase 93, Total Bilirubin 0.4, Total Protein 5.9 L, Albumin 2.2 L Microbiology Microbiology 11/15/16 Blood Culture - Final, Complete NO GROWTH AFTER 5 DAYS 11/15/16 Blood Culture - Final, Complete NO GROWTH AFTER 5 DAYS 11/21/16 Urine Culture - Final, Complete URIEL CEBALLOS MD Nov 24, 2016:44
[2016-11-24] MEDS: MIRALAX *UNIT DOSE* 17GM PACKET PO SCH (09:13)
[2016-11-24] MEDS: ASPIRIN 81 MG ENTERIC TAB PO SCH (09:14)
[2016-11-24] MEDS: TORSEMIDE 20 MG TAB PO SCH (09:14)
[2016-11-24] MEDS: FINASTERIDE 5 MG TAB PO SCH (09:14)
[2016-11-24] MEDS: DOCUSATE SODIUM 100 MG CAP PO SCH (09:14)
[2016-11-24] MEDS: CIPROFLOXACIN 500 MG TAB PO SCH (09:14)
[2016-11-24] MEDS: ALLOPURINOL 100 MG TAB PO SCH (09:14)
[2016-11-24 09:15] VITALS: BP 139/76
[2016-11-24] MEDS: METOPROLOL TART 25 MG TABLET PO SCH (09:15)
[2016-11-24] MEDS ORDERED: CIPR500T89 PO (12:50)
[2016-11-24] MEDS ORDERED: ASPI81TAEC PO (12:50)
[2016-11-24] MEDS ORDERED: METO25TAB PO (12:51)
[2016-11-24 14:00] VITALS: BP 132/71
[2016-11-24] MEDS ORDERED: ELIQ2.5T PO (15:59)
--- NOTE | 2016-11-24 18:06 | DSES ---
DATE OF ADMISSION: 11/11/2016 DATE OF DISCHARGE: 11/24/2016 PRIMARY CARE PROVIDER: Dr. Kilo Werner CONSULTANTS: Urologists Dr. Hussein Haile, Dr. Erin Shepard, and Dr. Edmar Arriaza. PROCEDURES: 1. Cystoscopy with blood clot evacuation and fulguration by Dr. Haile on 11/14/2016. 2. Transurethral resection of the prostate (TURP) by Dr. Shepard on 11/11/2016. COMPLICATIONS: None. ADMISSION/DISCHARGE DIAGNOSES: 1. Gross hematuria. 2. Acute on chronic kidney injury. 3. Atrial fibrillation. 4. History of coronary artery disease status post coronary artery bypass graft (CABG) and percutaneous coronary intervention. 5. History of congestive heart failure. 6. History of nonsustained ventricular tachycardia. 7. Hypertension. 8. Dyslipidemia. 9. History of urinary retention secondary to BPH. HOSPITALIZATION COURSE: Patient is a 76-year-old male with a history of multiple cardiac disease on Effient and Pradaxa, presented to [facility] on 11/[facility]/2016, as patient had hematuria after undergoing clean intermittent self-catheterization. Patient was admitted to the medical/surgical floor. Patient had a Iverson catheter inserted for monitoring and patient has continued to have trending hemoglobin and hematocrit and urologist, Dr. Haile, was initially consulted. Patient's antiplatelet and anticoagulation therapy is discontinued. Patient's hemoglobin and hematocrit has been monitored on a regular basis. On 11/14/2016, patient was brought to the operating room (OR) by Dr. Haile for cystoscopy with clot evacuation and fulguration. On 11/15/2016, patient received two units of packed red blood cell transfusion due to significant drop of the hemoglobin and hematocrit since admission. Dr. Shepard became the urologist attending assisting on case and TURP was scheduled for 11/18/2016. During the TURP procedure, patient was found to have significant purulent discharge and evidence of prostatitis and patient was started on ciprofloxacin after the procedure. On the day after the procedure, patient also showed significant anemia and three units of packed red blood cell transfusion was given and hospitalist reached out to patient's oncologist in [place] with regard to anticoagulation and antiplatelet therapy for the patient. Later, patient's baby aspirin was started per recommendations and patient continued to show improvement of the hematuria. After patient is evaluated by urology, Dr. Arriaza, on 11/24/2016, patient is determined to be medically stable for discharge with recommendation to followup win the urology office within 1 week. At the time of admission, patient still showed some mild clot in the urine, therefore initiation of Eliquis that was recommended by Dr. Olmedo was not initiated, it was determined to examine the patient at urology clinic at the appropriate time and if patient has complete resolution of the hematuria, then a reduced dose of Eliquis will be restarted per Dr. Olmedo's recommendations. OBJECTIVE: VITAL SIGNS: Temperature 98.5, pulse 68, respirations 18, blood pressure 132/71, pulse oximetry 98% in room air. LABORATORY DATA: WBC 11, hemoglobin 9.9, hematocrit 30.3, platelet count 429. Chemistry: Sodium 140, potassium 4.1, chloride 108, carbon dioxide 25, BUN 23, creatinine 1.13, GFR greater than 60, fasting glucose 100, calcium 7.7, magnesium 2.7, total bilirubin 0.4, AST 20, ALT 25, alkaline phosphatase 93, C-reactive protein 3.68, total protein 5.9. MICROBIOLOGY: Blood culture sample collected on 11/10/2016, is negative after 5 days times two sets. Urine culture obtained on 11/13/2016, is negative. Blood culture obtained on 11/15/2016, is negative after 5 days times two sets. Urine culture obtained on 11/17/2016, is negative. Blood transfusion history: During admission, patient had a total of eight units of packed red blood cell transfusion. Tissue pathology of the prostate sample from the TURP showed numerous fragments of benign hypertrophic prostatic tissues. IMAGING STUDIES: Chest x-ray on 11/11/2016, showed chronic stable changes. No obvious acute cardiopulmonary process. 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 Geographic fatty infiltration of the liver. Cholelithiasis. Urinary bladder wall thickening with air density within the urinary bladder likely secondary to recent urinary bladder instrumentation with catheter. Prostatomegaly. Transrectal ultrasound of the prostate done on 11/16/2016, showed enlarged prostate. No definite peripheral zone mass. DISCHARGE MEDICATIONS: - Eliquis 2.5 mg by mouth twice a day - aspirin 81 mg by mouth daily - ciprofloxacin 500 mg by mouth every 12 hours for 21 more days - metoprolol tartrate 37.5 mg by mouth twice a day - atorvastatin 80 mg by mouth nightly - eplerenone 25 mg by mouth daily - finasteride 5 mg by mouth daily - Maalox 400/400/30 suspension by mouth twice a day as needed for heartburn - nitroglycerin 0.4 mg sublingual every 5 minutes as needed for chest pain - Flomax 0.4 mg by mouth nightly - torsemide 20 mg by mouth daily DISCHARGE INSTRUCTIONS: Discharge the patient home. Patient should followup with Joan in Dr. Arriaza's office within 1 week. Patient should followup with tire classifier, Dr. Baird, within 1 week. Patient should followup with primary care provider, Dr. Werner, in 1-2 weeks. Patient's hematuria will be reevaluated in the urology clinic at a scheduled time. Patient's Effient and Pradaxa has been discontinued due to acute gross hematuria and the regimen has been adjusted to aspirin 81 mg and Eliquis 2.5 mg by mouth twice a day per Dr. Olmedo's recommendation. At the time of discharge, aspirin 81 mg has been initiated, however due to ongoing blood clot redaction, urology recommended holding the Eliquis until patient has been reevaluated in the urology clinic. Patient is recommended to continue taking ciprofloxacin for three more weeks for patient's prostatitis. DISCHARGE CONDITION: Stable. DISCHARGE TIME: Greater than 30 minutes.
== END 2016-11-24 15:22 | disposition home or self-care (01) | DRG 666 ==
LOC: M ED 16:35 → M PCU 18:48 → M MSPAV 11-24 02:35
PROVIDERS: ADMIT Hospitalist; ATTEND Internal Medicine
PROC: 0VB08ZZ Excision of Prostate, Via Natural or Artificial Opening Endoscopic (ICD-10-PCS; principal; 2016-11-11)
PROC: 0VC08ZZ Extirpation of Matter from Prostate, Via Natural or Artificial Opening Endoscopic (ICD-10-PCS; 2016-11-14)
PROC: 0T5D8ZZ Destruction of Urethra, Via Natural or Artificial Opening Endoscopic (ICD-10-PCS; 2016-11-14)
PROC: 30233N1 Transfusion of Nonautologous Red Blood Cells into Peripheral Vein, Percutaneous Approach (ICD-10-PCS; 2016-11-15)
DX: T83.091A Other mechanical complication of indwelling urethral catheter, initial encounter (principal); N17.9 Acute kidney failure, unspecified; I13.0 Hypertensive heart and chronic kidney disease with heart failure and stage 1 through stage 4 chronic kidney disease, or unspecified chronic kidney disease; R31.0 Gross hematuria; N28.1 Cyst of kidney, acquired; N41.1 Chronic prostatitis; N18.9 Chronic kidney disease, unspecified; N40.0 Benign prostatic hyperplasia without lower urinary tract symptoms; E78.5 Hyperlipidemia, unspecified; I48.91 Unspecified atrial fibrillation; I25.10 Atherosclerotic heart disease of native coronary artery without angina pectoris; I50.9 Heart failure, unspecified; Z79.899 Other long term (current) drug therapy; Z79.82 Long term (current) use of aspirin; Z79.01 Long term (current) use of anticoagulants; Z88.8 Allergy status to other drugs, medicaments and biological substances; Z87.891 Personal history of nicotine dependence

== ENCOUNTER → 2016-12-05 | Outpatient (REF) | payer MEDICARE, OTHER ==
[~2016-12-05] MED LIST changes: +ASPI81TAEC PO; +CIPR500T89 PO; +ELIQ2.5T PO; +METO25TAB PO
[2016-12-05 17:06] LABS: ALBUMIN 3.2 GM/DL (3.2-5.2); CALCIUM LEVEL 8.8 MG/DL (8.8-10.2); CREATININE FOR GFR 1.58 MG/DL (0.70-1.30); GLOMERULAR FILTRATION RATE 45.6 (>42); PHOSPHORUS LEVEL 3.2 MG/DL (2.5-4.9); POTASSIUM SERUM 4.4 MEQ/L (3.5-5.1)
== END ==
LOC: M LABDRAWC 16:33
PROVIDERS: ATTEND Physician Assistant
DX: I50.32 Chronic diastolic (congestive) heart failure (principal)

== ENCOUNTER 2017-01-04 23:45 | Emergency (ER) | payer MEDICARE, BC, OTHER ==
[~2017-01-04] VITALS: Ht 188 cm; Wt 112.0 kg
[~2017-01-04 23:45] MED LIST changes: -ATOR1TAB18 PO; +ATOR80TA59 PO; +CIPR-249 PO; -CIPR500T89 PO; +METO1TAB32 PO; +METO25TA4 PO; -METO25TA74 PO; -METO25TAB PO
[2017-01-04] MEDS ORDERED: TENECTEPLASE 50 MG KIT (TNKase)(J3101) ONE (23:46)
[2017-01-04] MEDS ORDERED: FAMOTIDINE 20 MG TAB ONE (23:46)
[2017-01-04] MEDS ORDERED: HEPARIN 25,000 UNITS/250 ML D5W BAG (100 UNITS/ML) ONE (23:46)
[2017-01-04] MEDS ORDERED: HEPARIN SOD (PORCINE) 5000 UNITS/ML VIAL ONE (23:46)
[2017-01-05] MEDS ORDERED: TOPR25TA PO (00:11)
[2017-01-05] MEDS ORDERED: DEMA20TA6 PO (00:11)
[2017-01-05] MEDS ORDERED: ALLO15TA PO (00:11)
[2017-01-05] MEDS ORDERED: ASPIRIN 81 MG CHEW TABLET PO ONE (00:30)
[2017-01-05] MEDS: NITROGLYCERIN 0.4 MG SUBL TABLET SL PRN ×3 (00:32→00:55)
[2017-01-05 00:39] LABS: BASO # 0.1 K/mm3 (0.0-0.2); BASO % 0.6 % (0.0-1.0); EOS # 0.1 K/mm3 (0.0-0.50); EOS % 0.8 % (0.0-3.0); LARGE UNSTAINED CELL # 0.1 K/mm3 (0.0-0.4); LYMPH # 1.5 K/mm3 (1.5-4.5); LYMPH % 11.7 % (24.0-44.0); MEAN CORPUSCULAR HEMOGLOBIN 29.8 pg (27.0-33.0); MEAN CORPUSCULAR HGB CONC 33.6 g/dl (32.0-36.5); MEAN CORPUSCULAR VOLUME 88.8 fl (80.0-96.0); MONO # 0.7 K/mm3 (0.0-0.8); MONO % 5.6 % (0.0-5.0); NEUTROPHILS # 9.7 K/mm3 (1.8-7.7); NEUTROPHILS % 80.4 % (36.0-66.0); PLATELET COUNT, AUTOMATED 243 k/mm3 (150-450); RED CELL DISTRIBUTION WIDTH 15.7 % (11.5-14.5)
[2017-01-05] MEDS ORDERED: TENECTEPLASE 50 MG KIT (TNKase)(J3101) IV ONE (00:45)
[2017-01-05] MEDS ORDERED: FAMOTIDINE 20 MG TAB PO ONE (00:45)
[2017-01-05] MEDS ORDERED: HEPARIN SOD (PORCINE) 5000 UNITS/ML VIAL IV ONE (00:45)
[2017-01-05 00:48] LABS: INR 1.12
[2017-01-05] MEDS: HEPARIN DRIP 25,000 UNITS in APPROPRIATE DILUENT 1 EA IV SCH ×2 (00:54→01:23)
[2017-01-05 00:55] VITALS: BP 124/73
[2017-01-05 01:03] LABS: CALCIUM LEVEL 9.1 MG/DL (8.8-10.2); CREATININE FOR GFR 1.34 MG/DL (0.70-1.30); GLOMERULAR FILTRATION RATE 55.2 (>42)
[2017-01-05 01:41] VITALS: BP 128/70
--- NOTE | 2017-01-05 07:34 | REP ---
Portable chest, 12:40 a.m., single AP view, the patient semi upright: Comparison is 11/11/2016. Lung zeng are clear. Cardiac size is borderline enlarged for portable positioning. Sternotomy wires and mediastinal surgical clips are again identified. The kaylee, mediastinum, and bony thorax are unremarkable. Impression: There are no acute cardiopulmonary findings. Signed by Jonh Conner MD 01/05/2017 07:26 A
--- NOTE | 2017-01-05 10:06 | ECGEPIP ---
Stationary ECG Study [facility] - ED Test Date: 2017-01-05 Pat Name: JAVAN VALDIVIA Department: Room: - Gender: M Hatch Tender: yu : 1940 Requested By: WIL Chung Order Number: [id number] Reading MD: Sara Graham Measurements Intervals Victor Rate: 76 P: CA: 0 QRS: 79 QRSD: 87 T: 117 QT: 414 QTc: 466 Interpretive Statements ATRIAL FIBRILLATION ST DEPRESSION, CONSIDER SUBENDOCARDIAL INJURY DECREASED RATE 11/15/16 Electronically Signed On 01-05-2017 10:05:48 EDT by Sara Graham
== END 2017-01-05 01:48 | disposition short-term general hospital (02) ==
LOC: M ED 23:45
DX: I21.19 ST elevation (STEMI) myocardial infarction involving other coronary artery of inferior wall (principal); I48.91 Unspecified atrial fibrillation; I10 Essential (primary) hypertension; I25.10 Atherosclerotic heart disease of native coronary artery without angina pectoris; I25.2 Old myocardial infarction; Z95.1 Presence of aortocoronary bypass graft; Z88.8 Allergy status to other drugs, medicaments and biological substances; Z79.899 Other long term (current) drug therapy
CPT/HCPCS: 36415; 71010; 80048; 82550; 82553; 84484; 85025; 85610; 85730; 93005; 93041; 94760; 96361; 96374; 99285; J3101

== ENCOUNTER 2017-02-10 14:15 | Outpatient (RCR) | payer MEDICARE, BC, OTHER ==
[~2017-02-10 14:15] MED LIST changes: +ALLO15TA PO; +DEMA20TA6 PO; +TOPR25TA PO
== END 2017-02-16 ==
LOC: M CR 14:15
PROVIDERS: ATTEND Physician Assistant
DX: Z51.89 Encounter for other specified aftercare (principal); I25.10 Atherosclerotic heart disease of native coronary artery without angina pectoris; Z98.61 Coronary angioplasty status

== ENCOUNTER 2017-03-10 14:14 | Outpatient (RCR) | payer MEDICARE, BC, OTHER | END 2017-03-18 | LOC: M CR 14:14 | PROVIDERS: ATTEND Physician Assistant | DX: Z51.89 Encounter for other specified aftercare (principal); I25.10 Atherosclerotic heart disease of native coronary artery without angina pectoris; Z98.61 Coronary angioplasty status ==

== ENCOUNTER → 2018-01-01 | Outpatient (REF) | payer MEDICARE, BC, OTHER ==
[2018-01-01 13:15] LABS: ANION GAP 10 MEQ/L (8-16); BLOOD UREA NITROGEN 26 MG/DL (7-18); CALCIUM LEVEL 8.7 MG/DL (8.8-10.2); CARBON DIOXIDE LEVEL 24 MEQ/L (21-32); CHLORIDE LEVEL 106 MEQ/L (98-107); CREATININE FOR GFR 1.27 MG/DL (0.70-1.30); GLOMERULAR FILTRATION RATE 58.5 (>42); GLUCOSE, FASTING 135 MG/DL (70-100); POTASSIUM SERUM 4.1 MEQ/L (3.5-5.1); SODIUM LEVEL 140 MEQ/L (136-145)
== END ==
LOC: M LABDRAWC 11:43
DX: I50.32 Chronic diastolic (congestive) heart failure (principal)
CPT/HCPCS: 80048

== ENCOUNTER → 2018-12-21 | Outpatient (REF) | payer MEDICARE, BC, OTHER ==
[~2018-12-21] MED LIST changes: -ALLO15TA PO; +ALLO300T2 PO; +FLOM0.4C39 PO; -FLOM5CAP PO; -PRAD150C PO; +PRAD150C6 PO
[2018-12-21 11:53] LABS: HEMATOCRIT 42.5 % (42.0-52.0); HEMOGLOBIN 13.8 g/dl (13.5-17.5); MEAN CORPUSCULAR HEMOGLOBIN 29.5 pg (27.0-33.0); MEAN CORPUSCULAR HGB CONC 32.5 g/dl (32.0-36.5); MEAN CORPUSCULAR VOLUME 90.8 fl (80.0-96.0); PLATELET COUNT, AUTOMATED 259 10^3/uL (150-450); RED BLOOD COUNT 4.68 10^6/uL (4.30-6.10); WHITE BLOOD COUNT 9.5 10^3/uL (4.0-10.0)
[2018-12-21 12:40] LABS: ALBUMIN 3.7 GM/DL (3.2-5.2); BILIRUBIN,TOTAL 0.5 MG/DL (0.2-1.0); CALCIUM LEVEL 9.1 MG/DL (8.8-10.2); CHOLESTEROL RISK RATIO 2.86 (<5); CREATININE FOR GFR 1.28 MG/DL (0.70-1.30); GLOMERULAR FILTRATION RATE 57.9 (>42); MAGNESIUM LEVEL 2.5 MG/DL (1.8-2.4); POTASSIUM SERUM 4.7 MEQ/L (3.5-5.1); TOTAL PROTEIN 7.6 GM/DL (6.4-8.2)
== END ==
LOC: M LABDRAWC 11:10
PROVIDERS: ATTEND Physician Assistant
DX: I25.10 Atherosclerotic heart disease of native coronary artery without angina pectoris (principal); I50.32 Chronic diastolic (congestive) heart failure; E78.2 Mixed hyperlipidemia; I48.2 Chronic atrial fibrillation

== ENCOUNTER → 2020-02-27 | Outpatient (REF) | payer MEDICARE, BC, OTHER ==
[2020-02-27 14:09] LABS: HEMOGLOBIN 13.3 g/dl (13.5-17.5); MEAN CORPUSCULAR HEMOGLOBIN 30.2 pg (27.0-33.0); MEAN CORPUSCULAR HGB CONC 31.7 g/dl (32.0-36.5); MEAN CORPUSCULAR VOLUME 95.2 fl (80.0-96.0); PLATELET COUNT, AUTOMATED 202 10^3/uL (150-450); RED BLOOD COUNT 4.41 10^6/uL (4.30-6.10); WHITE BLOOD COUNT 8.2 10^3/uL (4.0-10.0)
[2020-02-27 14:18] LABS: ALBUMIN 3.5 GM/DL (3.2-5.2); BILIRUBIN,TOTAL 0.5 MG/DL (0.2-1.0); CALCIUM LEVEL 8.6 MG/DL (8.8-10.2); CHOLESTEROL RISK RATIO 2.931 (<5); CREATININE FOR GFR 1.47 MG/DL (0.70-1.30); GLOMERULAR FILTRATION RATE 49.2 (>42); MAGNESIUM LEVEL 2.3 MG/DL (1.8-2.4); POTASSIUM SERUM 4.8 MEQ/L (3.5-5.1); TOTAL PROTEIN 7.3 GM/DL (6.4-8.2)
== END ==
LOC: M LABDRAWC 07:55
PROVIDERS: ATTEND Physician Assistant
DX: I25.10 Atherosclerotic heart disease of native coronary artery without angina pectoris (principal); I50.32 Chronic diastolic (congestive) heart failure; E78.2 Mixed hyperlipidemia; I48.20 Chronic atrial fibrillation, unspecified; Z12.5 Encounter for screening for malignant neoplasm of prostate

== ENCOUNTER → 2020-02-27 | Outpatient (REF) | payer MEDICARE, BC, OTHER | LOC: M LABDRAWC 07:55 | PROVIDERS: ATTEND Nurse Practitioner Women's Health | DX: Z12.5 Encounter for screening for malignant neoplasm of prostate (principal) ==

== ENCOUNTER → 2021-12-02 | Outpatient (REF) | payer MEDICARE, OTHER ==
[~2021-12-02] MED LIST changes: +ALBU8.5H INH; +AMIO200T49 PO; +ASPI-569 PO; -ASPI81TAEC PO; +BUDE10.2 INH; -EFFI10TA4 PO; +EFFI10TA7 PO; +ELIQ5TAB PO; +ENTR1TAB PO; +LISI2.5T9 PO
[2021-12-02 16:00] LABS: MEAN CORPUSCULAR HEMOGLOBIN 30.3 pg (27.0-33.0); MEAN CORPUSCULAR VOLUME 94.7 fl (80.0-96.0); PLATELET COUNT, AUTOMATED 226 10^3/uL (150-450); RED BLOOD COUNT 2.64 10^6/uL (4.30-6.10); WHITE BLOOD COUNT 10.5 10^3/uL (4.0-10.0)
[2021-12-02 16:29] LABS: CALCIUM LEVEL 8.2 MG/DL (8.8-10.2); CREATININE FOR GFR 3.15 MG/DL (0.70-1.30); GLOMERULAR FILTRATION RATE 20.3 (>35); MAGNESIUM LEVEL 2.6 MG/DL (1.8-2.4)
== END ==
LOC: M LABDRAWC 15:34
PROVIDERS: ATTEND Physician Assistant
DX: I50.42 Chronic combined systolic (congestive) and diastolic (congestive) heart failure (principal)

== ENCOUNTER 2021-12-03 12:08 | Inpatient (IN) | payer MEDICARE, OTHER ==
[~2021-12-03] VITALS: Ht 188 cm; Wt 102.0 kg
[~2021-12-03 12:08] MED LIST changes: -ALBU8.5H INH; -AMIO200T49 PO; -BUDE10.2 INH; -ELIQ5TAB PO; -ENTR1TAB PO; +IRON SUCROSE 200 MG in NS 100 ML IV ONE; -LISI2.5T9 PO
[2021-12-03 13:51] LABS: BASO # 0.1 10^3/uL (0.0-0.2); BASO % 0.5 % (0.0-1.0); EOS # 0.1 10^3/uL (0.0-0.5); EOS % 1.2 % (0.0-3.0); HEMATOCRIT 25.9 % (42.0-52.0); HEMOGLOBIN 8.1 g/dl (13.5-17.5); LYMPH % 8.8 % (24.0-44.0); MEAN CORPUSCULAR HEMOGLOBIN 30.3 pg (27.0-33.0); MEAN CORPUSCULAR HGB CONC 31.3 g/dl (32.0-36.5); MONO % 9.3 % (2.0-8.0); NEUTROPHILS # 8.7 10^3/uL (1.5-8.5); NEUTROPHILS % 79.3 % (36.0-66.0); PLATELET COUNT, AUTOMATED 232 10^3/uL (150-450); RED BLOOD COUNT 2.67 10^6/uL (4.30-6.10); WHITE BLOOD COUNT 10.9 10^3/uL (4.0-10.0)
[2021-12-03 14:05] LABS: INR 2.31; PROTHROMBIN TIME 25.8 SECONDS (12.7-14.5)
[2021-12-03 14:24] LABS: CK-MB VALUE MASS 4.4 NG/ML (<3.6); MB/CK RELATIVE INDEX 1.08 (< OR =4)
[2021-12-03 14:25] LABS: ALBUMIN 3.4 GM/DL (3.2-5.2); BILIRUBIN,DIRECT 0.5 MG/DL (0.0-0.2); BILIRUBIN,TOTAL 0.8 MG/DL (0.2-1.0); CALCIUM LEVEL 8.3 MG/DL (8.8-10.2); CREATININE FOR GFR 2.84 MG/DL (0.70-1.30); GLOMERULAR FILTRATION RATE 22.9 (>35); MAGNESIUM LEVEL 2.6 MG/DL (1.8-2.4); PHOSPHORUS LEVEL 3.8 MG/DL (2.5-4.9); POTASSIUM SERUM 5.4 MEQ/L (3.5-5.1); RSV AMPLIFICATION NEGATIVE (NEGATIVE); TOTAL PROTEIN 7.7 GM/DL (6.4-8.2)
[2021-12-03] MEDS ORDERED: NS 500 ML IV ONE (14:45)
[2021-12-03] MEDS ORDERED: ALBU8.5H INH (15:15)
[2021-12-03] MEDS ORDERED: AMIO200T49 PO (15:15)
[2021-12-03] MEDS ORDERED: TORS20TA2 PO (15:15)
[2021-12-03] MEDS ORDERED: ELIQ5TAB PO (15:15)
[2021-12-03] MEDS ORDERED: BUDE10.2 INH (15:15)
[2021-12-03] MEDS ORDERED: LISI2.5T9 PO (15:15)
[2021-12-03] MEDS ORDERED: ENTR1TAB PO (15:15)
[2021-12-03 17:09] LABS: FERRITIN 58 NG/ML (26-388); IRON (FE) 50 UG/DL (65-175); PERCENT SATURATION 16.9 % (19.7-50.0); TOTAL IRON BINDING CAPACITY 296 UG/DL (250-450)
[2021-12-03] MEDS ORDERED: HOME MED LIST COMPLETE! XX SCH (17:10)
[2021-12-03 17:16] LABS: FOLATE > 24.0 NG/ML (>5.4); VITAMIN B12 LEVEL 668 PG/ML (247-911)
[2021-12-03 18:25] VITALS: BP 126/68
[2021-12-03] MEDS: SODIUM BICARBONATE 325 MG TAB PO SCH (20:07)
[2021-12-03 20:25] LABS: HEMATOCRIT 24.1 % (42.0-52.0); HEMOGLOBIN 7.7 g/dl (13.5-17.5)
[2021-12-03 20:49] LABS: CALCIUM LEVEL 7.9 MG/DL (8.8-10.2); CREATININE FOR GFR 2.83 MG/DL (0.70-1.30)
[2021-12-03] MEDS ORDERED: ALBUTEROL 90 MCG/ACT 8GM HFA INHALER INH PRN (21:20)
[2021-12-03] MEDS: SYMBICORT 160/4.5MCG INHALER 6GM INH SCH (21:35)
[2021-12-03 21:51] VITALS: BP 123/63
[2021-12-03] MEDS: ATORVASTATIN 20 MG TAB PO SCH (22:58)
[2021-12-03] MEDS: TAMSULOSIN 0.4 MG CAP PO SCH (22:58)
[2021-12-03 23:46] VITALS: BP 133/78
[2021-12-04] VITALS (14 sets, daily range): BP systolic 108–130; BP diastolic 52–75
[2021-12-04] MEDS ORDERED: IRON SUCROSE 200 MG in NS 100 ML IV ONE (06:00)
[2021-12-04 07:21] LABS: BASO % 0.4 % (0.0-1.0); EOS # 0.2 10^3/uL (0.0-0.5); EOS % 1.9 % (0.0-3.0); HEMATOCRIT 24.4 % (42.0-52.0); HEMOGLOBIN 7.6 g/dl (13.5-17.5); LYMPH # 0.9 10^3/uL (1.5-5.0); LYMPH % 8.7 % (24.0-44.0); MEAN CORPUSCULAR HEMOGLOBIN 29.1 pg (27.0-33.0); MEAN CORPUSCULAR HGB CONC 31.1 g/dl (32.0-36.5); MEAN CORPUSCULAR VOLUME 93.5 fl (80.0-96.0); MONO # 0.8 10^3/uL (0.0-0.8); MONO % 8.4 % (2.0-8.0); NEUTROPHILS % 79.8 % (36.0-66.0); PLATELET COUNT, AUTOMATED 195 10^3/uL (150-450); RED BLOOD COUNT 2.61 10^6/uL (4.30-6.10); WHITE BLOOD COUNT 10.1 10^3/uL (4.0-10.0)
[2021-12-04 07:47] LABS: ALBUMIN 2.9 GM/DL (3.2-5.2); BILIRUBIN,TOTAL 1.3 MG/DL (0.2-1.0); CALCIUM LEVEL 7.7 MG/DL (8.8-10.2); CREATININE FOR GFR 2.38 MG/DL (0.70-1.30); GLOMERULAR FILTRATION RATE 28.1 (>35); MAGNESIUM LEVEL 2.5 MG/DL (1.8-2.4); PHOSPHORUS LEVEL 3.3 MG/DL (2.5-4.9); POTASSIUM SERUM 5.2 MEQ/L (3.5-5.1); TOTAL PROTEIN 6.4 GM/DL (6.4-8.2)
[2021-12-04] MEDS: SYMBICORT 160/4.5MCG INHALER 6GM INH SCH ×2 (08:15→19:39)
[2021-12-04] MEDS ORDERED: FLUBLOK(EGG FREE)(QUAD)INFLUENZA VACC 0.5ML SYRINGE 18YRS & OLDER IM.IMMUN ONE (09:00)
[2021-12-04] MEDS: FINASTERIDE 5MG TAB PO SCH (09:13)
[2021-12-04] MEDS: AMIODARONE 200 MG TAB (PACERONE) PO SCH (09:13)
[2021-12-04] MEDS: SODIUM BICARBONATE 325 MG TAB PO SCH ×2 (09:14→20:10)
[2021-12-04] MEDS: FUROSEMIDE 40MG/4ML VIAL (J1940) IV SCH ×2 (12:23→20:12)
[2021-12-04] MEDS: TAMSULOSIN 0.4 MG CAP PO SCH (20:10)
[2021-12-04] MEDS: ATORVASTATIN 20 MG TAB PO SCH (20:10)
[2021-12-05] MEDS: FUROSEMIDE 40MG/4ML VIAL (J1940) IV SCH ×4 (05:54→20:53)
[2021-12-05 06:00] VITALS: BP 102/53
[2021-12-05 06:33] LABS: HEMATOCRIT 25.3 % (42.0-52.0); MEAN CORPUSCULAR HEMOGLOBIN 29.4 pg (27.0-33.0); MEAN CORPUSCULAR HGB CONC 31.6 g/dl (32.0-36.5); PLATELET COUNT, AUTOMATED 210 10^3/uL (150-450); RED BLOOD COUNT 2.72 10^6/uL (4.30-6.10); WHITE BLOOD COUNT 10.6 10^3/uL (4.0-10.0)
[2021-12-05 06:54] LABS: CALCIUM LEVEL 7.9 MG/DL (8.8-10.2); CREATININE FOR GFR 2.35 MG/DL (0.70-1.30); GLOMERULAR FILTRATION RATE 28.5 (>35); MAGNESIUM LEVEL 2.5 MG/DL (1.8-2.4); PHOSPHORUS LEVEL 3.2 MG/DL (2.5-4.9)
[2021-12-05] MEDS: SYMBICORT 160/4.5MCG INHALER 6GM INH SCH ×2 (08:00→19:54)
[2021-12-05] MEDS: SODIUM BICARBONATE 325 MG TAB PO SCH ×2 (08:47→20:53)
[2021-12-05] MEDS: FINASTERIDE 5MG TAB PO SCH (08:47)
[2021-12-05] MEDS: AMIODARONE 200 MG TAB (PACERONE) PO SCH (08:47)
[2021-12-05] MEDS ORDERED: FERRIC CARBOXYMALTOSE INJ 750 MG, VIAL MATE ADAPTER 1 EACH in NS 250 ML IV ONE (10:35)
[2021-12-05] MEDS ORDERED: IRON SUCROSE 100MG 5ML VIAL (J1756 PER 1MG) IV ONE (11:20)
[2021-12-05 12:00] VITALS: BP 115/60
[2021-12-05 14:00] VITALS: BP 109/60
[2021-12-05] MEDS ORDERED: IRON SUCROSE 200 MG in NS 100 ML OVER 1 HR IV ONE (14:00)
[2021-12-05] MEDS: PANTOPRAZOLE 40MG VIAL IV SCH (18:20)
[2021-12-05] MEDS: ATORVASTATIN 20 MG TAB PO SCH (20:54)
[2021-12-05] MEDS: TAMSULOSIN 0.4 MG CAP PO SCH (20:54)
[2021-12-05 22:00] VITALS: BP 119/64
[2021-12-06] MEDS: FUROSEMIDE 40MG/4ML VIAL (J1940) IV SCH ×3 (05:00→20:25)
[2021-12-06] MEDS: PANTOPRAZOLE 40MG VIAL IV SCH ×2 (05:38→18:27)
[2021-12-06 05:42] VITALS: BP 98/46
[2021-12-06 06:00] VITALS: BP 98/46
[2021-12-06 06:24] LABS: HEMATOCRIT 24.7 % (42.0-52.0); HEMOGLOBIN 7.9 g/dl (13.5-17.5); MEAN CORPUSCULAR HEMOGLOBIN 30.5 pg (27.0-33.0); MEAN CORPUSCULAR VOLUME 95.4 fl (80.0-96.0); PLATELET COUNT, AUTOMATED 221 10^3/uL (150-450); RED BLOOD COUNT 2.59 10^6/uL (4.30-6.10); WHITE BLOOD COUNT 11.4 10^3/uL (4.0-10.0)
[2021-12-06 06:54] LABS: CALCIUM LEVEL 8.6 MG/DL (8.8-10.2); CREATININE FOR GFR 2.02 MG/DL (0.70-1.30); GLOMERULAR FILTRATION RATE 33.9 (>35); MAGNESIUM LEVEL 2.6 MG/DL (1.8-2.4); PHOSPHORUS LEVEL 3.1 MG/DL (2.5-4.9); POTASSIUM SERUM 4.6 MEQ/L (3.5-5.1)
[2021-12-06] MEDS: SYMBICORT 160/4.5MCG INHALER 6GM INH SCH ×2 (07:21→20:38)
[2021-12-06] MEDS: AMIODARONE 200 MG TAB (PACERONE) PO SCH (08:34)
[2021-12-06] MEDS: FINASTERIDE 5MG TAB PO SCH (08:34)
[2021-12-06] MEDS: SODIUM BICARBONATE 325 MG TAB PO SCH ×2 (08:34→20:24)
[2021-12-06] MEDS ORDERED: DARBEPOETIN 100 MCG/0.5 ML *NON-DIALYSIS* SYRINGE (J0881) SC SCH (09:00)
[2021-12-06] MEDS: MIDODRINE 2.5 MG TAB PO SCH ×2 (13:04→15:46)
[2021-12-06 14:00] VITALS: BP 128/68
[2021-12-06] MEDS ORDERED: GOLYTELY SOLN 4000 ML BTL PO ONE (15:00)
[2021-12-06 20:02] VITALS: BP 114/69
[2021-12-06] MEDS: ATORVASTATIN 20 MG TAB PO SCH (20:24)
[2021-12-06] MEDS: TAMSULOSIN 0.4 MG CAP PO SCH (20:24)
[2021-12-07] VITALS (14 sets, daily range): BP systolic 105–120; BP diastolic 52–70
[2021-12-07] MEDS: PANTOPRAZOLE 40MG VIAL IV SCH ×2 (05:22→18:17)
[2021-12-07] MEDS: FUROSEMIDE 40MG/4ML VIAL (J1940) IV SCH ×3 (05:24→20:54)
[2021-12-07 06:13] LABS: HEMATOCRIT 24.5 % (42.0-52.0); HEMOGLOBIN 7.7 g/dl (13.5-17.5); MEAN CORPUSCULAR HGB CONC 31.4 g/dl (32.0-36.5); MEAN CORPUSCULAR VOLUME 95.3 fl (80.0-96.0); PLATELET COUNT, AUTOMATED 197 10^3/uL (150-450); RED BLOOD COUNT 2.57 10^6/uL (4.30-6.10); WHITE BLOOD COUNT 9.2 10^3/uL (4.0-10.0)
[2021-12-07 06:44] LABS: CALCIUM LEVEL 8.4 MG/DL (8.8-10.2); CREATININE FOR GFR 1.85 MG/DL (0.70-1.30); GLOMERULAR FILTRATION RATE 37.5 (>35); MAGNESIUM LEVEL 2.4 MG/DL (1.8-2.4); PHOSPHORUS LEVEL 3.4 MG/DL (2.5-4.9); POTASSIUM SERUM 4.2 MEQ/L (3.5-5.1)
[2021-12-07] MEDS: SYMBICORT 160/4.5MCG INHALER 6GM INH SCH ×2 (08:00→19:15)
[2021-12-07] MEDS: SODIUM BICARBONATE 325 MG TAB PO SCH ×2 (09:03→20:55)
[2021-12-07] MEDS: AMIODARONE 200 MG TAB (PACERONE) PO SCH (09:03)
[2021-12-07] MEDS: MIDODRINE 2.5 MG TAB PO SCH ×3 (09:03→16:07)
[2021-12-07] MEDS: FINASTERIDE 5MG TAB PO SCH (09:03)
[2021-12-07] MEDS ORDERED: propofoL 200 MG/20 ML VIAL As Ordered ONE ×3 (12:59→14:47)
[2021-12-07] MEDS ORDERED: LIDOCAINE 2% 100MG/5ML SDV (FOR ANES.) As Ordered ONE (12:59)
[2021-12-07] MEDS ORDERED: PHENYLephrine 500MCG 5ML (100MCG/ML) SYRINGE As Ordered ONE ×2 (14:23→14:41)
[2021-12-07] MEDS ORDERED: ePHEDrine SULFATE 25 MG/5 ML(5MG/ML) SYRINGE As Ordered ONE ×2 (14:23→14:33)
[2021-12-07] MEDS ORDERED: ONDANSETRON 4MG/2ML VIAL IV PRN (15:20)
[2021-12-07] MEDS ORDERED: NS 1,000 ML IV SCH (15:20)
[2021-12-07] MEDS: TAMSULOSIN 0.4 MG CAP PO SCH (20:55)
[2021-12-07] MEDS: ATORVASTATIN 20 MG TAB PO SCH (20:55)
[2021-12-08 01:00] VITALS: BP 115/58
[2021-12-08] MEDS: FUROSEMIDE 40MG/4ML VIAL (J1940) IV SCH (05:00)
[2021-12-08 05:26] VITALS: BP 94/53
[2021-12-08] MEDS: PANTOPRAZOLE 40MG VIAL IV SCH (05:49)
[2021-12-08 05:56] VITALS: BP 98/52
[2021-12-08 06:22] LABS: HEMOGLOBIN 8.5 g/dl (13.5-17.5); MEAN CORPUSCULAR HEMOGLOBIN 30.1 pg (27.0-33.0); MEAN CORPUSCULAR HGB CONC 31.5 g/dl (32.0-36.5); MEAN CORPUSCULAR VOLUME 95.7 fl (80.0-96.0); PLATELET COUNT, AUTOMATED 203 10^3/uL (150-450); RED BLOOD COUNT 2.82 10^6/uL (4.30-6.10); WHITE BLOOD COUNT 9.7 10^3/uL (4.0-10.0)
[2021-12-08 06:50] LABS: CALCIUM LEVEL 8.7 MG/DL (8.8-10.2); CREATININE FOR GFR 2.15 MG/DL (0.70-1.30); GLOMERULAR FILTRATION RATE 31.6 (>35); MAGNESIUM LEVEL 2.4 MG/DL (1.8-2.4); PHOSPHORUS LEVEL 3.7 MG/DL (2.5-4.9); POTASSIUM SERUM 4.8 MEQ/L (3.5-5.1)
[2021-12-08] MEDS: SYMBICORT 160/4.5MCG INHALER 6GM INH SCH (07:38)
[2021-12-08] MEDS: FINASTERIDE 5MG TAB PO SCH (08:17)
[2021-12-08] MEDS: MIDODRINE 2.5 MG TAB PO SCH ×2 (08:17→11:46)
[2021-12-08] MEDS: SODIUM BICARBONATE 325 MG TAB PO SCH (08:17)
[2021-12-08] MEDS: AMIODARONE 200 MG TAB (PACERONE) PO SCH (08:17)
[2021-12-08] MEDS ORDERED: TORS20TA2 PO (10:30)
[2021-12-08] MEDS ORDERED: PANT40TA29 PO (10:31)
[2021-12-08] MEDS ORDERED: MIDO2.5T PO (10:31)
[2021-12-08] MEDS ORDERED: TORS10TA3 PO (10:55)
== END 2021-12-08 12:45 | disposition home or self-care (01) | DRG 377 ==
LOC: M ED 12:08 → M ED INP 15:47 → ENRESERV 17:10 → M MSPAV 18:23
PROVIDERS: ADMIT Internal Medicine; ATTEND Internal Medicine
PROC: 30233N1 Transfusion of Nonautologous Red Blood Cells into Peripheral Vein, Percutaneous Approach (ICD-10-PCS; 2021-12-04)
PROC: 0DJ08ZZ Inspection of Upper Intestinal Tract, Via Natural or Artificial Opening Endoscopic (ICD-10-PCS; principal; 2021-12-08)
PROC: 0DBL8ZX Excision of Transverse Colon, Via Natural or Artificial Opening Endoscopic, Diagnostic (ICD-10-PCS; 2021-12-08)
DX: K92.2 Gastrointestinal hemorrhage, unspecified (principal); I50.23 Acute on chronic systolic (congestive) heart failure; N17.9 Acute kidney failure, unspecified; I13.0 Hypertensive heart and chronic kidney disease with heart failure and stage 1 through stage 4 chronic kidney disease, or unspecified chronic kidney disease; E87.2 Acidosis; D62 Acute posthemorrhagic anemia; D50.9 Iron deficiency anemia, unspecified; E87.6 Hypokalemia; I25.10 Atherosclerotic heart disease of native coronary artery without angina pectoris; I25.2 Old myocardial infarction; I48.91 Unspecified atrial fibrillation; N40.0 Benign prostatic hyperplasia without lower urinary tract symptoms; M10.9 Gout, unspecified; Z95.5 Presence of coronary angioplasty implant and graft; Z98.41 Cataract extraction status, right eye; Z98.42 Cataract extraction status, left eye; D72.829 Elevated white blood cell count, unspecified; Z20.822 Contact with and (suspected) exposure to COVID-19; Z79.01 Long term (current) use of anticoagulants; Z79.899 Other long term (current) drug therapy; Z88.8 Allergy status to other drugs, medicaments and biological substances; J44.9 Chronic obstructive pulmonary disease, unspecified; N18.9 Chronic kidney disease, unspecified; D12.3 Benign neoplasm of transverse colon; E78.5 Hyperlipidemia, unspecified

== ENCOUNTER 2021-12-13 18:45 | Emergency (ER) | payer MEDICARE, BC, OTHER ==
[~2021-12-13] VITALS: Ht 188 cm; Wt 103.2 kg
[~2021-12-13 18:45] MED LIST changes: +ALBU8.5H INH; +AMIO200T49 PO; +BUDE10.2 INH; +ELIQ5TAB PO; +ENTR1TAB PO; -IRON SUCROSE 200 MG in NS 100 ML IV ONE; +LISI2.5T9 PO; +MIDO2.5T PO; +PANT40TA29 PO; +TORS10TA3 PO
[2021-12-13] MEDS ORDERED: MIDO2.5T PO (19:44)
[2021-12-13 22:05] LABS: BASO % 0.2 % (0.0-1.0); HEMATOCRIT 34.9 % (42.0-52.0); HEMOGLOBIN 11.5 g/dl (13.5-17.5); LYMPH # 0.3 10^3/uL (1.5-5.0); LYMPH % 1.9 % (24.0-44.0); MEAN CORPUSCULAR HEMOGLOBIN 30.7 pg (27.0-33.0); MEAN CORPUSCULAR VOLUME 93.3 fl (80.0-96.0); MONO # 0.8 10^3/uL (0.0-0.8); MONO % 5.2 % (2.0-8.0); NEUTROPHILS % 92.3 % (36.0-66.0); PLATELET COUNT, AUTOMATED 147 10^3/uL (150-450); RED BLOOD COUNT 3.74 10^6/uL (4.30-6.10); WHITE BLOOD COUNT 16.2 10^3/uL (4.0-10.0)
[2021-12-13 22:33] LABS: CK-MB VALUE MASS 2.2 NG/ML (<3.6); MB/CK RELATIVE INDEX 1.21 (< OR =4)
[2021-12-13 22:37] LABS: BLOOD UREA NITROGEN 60 MG/DL (7-18); CALCIUM LEVEL 7.8 MG/DL (8.8-10.2); CARBON DIOXIDE LEVEL 22 MEQ/L (21-32); CHLORIDE LEVEL 100 MEQ/L (98-107); CREATININE FOR GFR 3.29 MG/DL (0.70-1.30); ETHYL ALCOHOL (ETHANOL) < 0.003 % (0.000-0.010); GLOMERULAR FILTRATION RATE 19.3 (>35); GLUCOSE, FASTING 141 MG/DL (70-100); POTASSIUM SERUM 4.4 MEQ/L (3.5-5.1); SODIUM LEVEL 132 MEQ/L (136-145)
[2021-12-13 22:48] LABS: INR 2.13; PROTHROMBIN TIME 24.2 SECONDS (12.7-14.5)
[2021-12-13 22:49] LABS: PARTIAL THROMBOPLASTIN TIME 37.2 SECONDS (25.9-37.0)
[2021-12-13] MEDS ORDERED: ASPIRIN 81 MG CHEW TABLET PO ONE (22:55)
[2021-12-13 23:50] LABS: RSV AMPLIFICATION NEGATIVE (NEGATIVE)
[2021-12-14 00:07] LABS: MB/CK RELATIVE INDEX 1.07 (< OR =4)
[2021-12-14] MEDS ORDERED: MIDODRINE 2.5 MG TAB PO ONE (00:40)
[2021-12-14] MEDS ORDERED: PIPERACILLIN/TAZOBACTAM SOD 3.375 GM in D5W MINI-BAG PLUS 50 ML IV ONE (01:00)
[2021-12-14] MEDS ORDERED: NS 1,000 ML IV ONE ×2 (01:00→01:55)
[2021-12-14] MEDS ORDERED: ACETAMINOPHEN 500 MG TAB PO ONE (01:00)
[2021-12-14 05:45] VITALS: BP 90/53
== END 2021-12-14 06:30 | disposition short-term general hospital (02) ==
LOC: M ED 18:45 → EEVIPCON 18:45 → M ED 12-14 06:30
DX: I21.4 Non-ST elevation (NSTEMI) myocardial infarction (principal); R55 Syncope and collapse; I50.9 Heart failure, unspecified; I10 Essential (primary) hypertension; N18.9 Chronic kidney disease, unspecified; I48.91 Unspecified atrial fibrillation; Z79.899 Other long term (current) drug therapy; Z79.01 Long term (current) use of anticoagulants; Z95.1 Presence of aortocoronary bypass graft; Z95.5 Presence of coronary angioplasty implant and graft; Z88.8 Allergy status to other drugs, medicaments and biological substances
CPT/HCPCS: 36415; 70450; 71045; 80048; 82077; 82550; 82553; 83605; 84443; 84484; 85025; 85610; 85730; 87040; 87077; 87186; 87631; 93005; 93041; 94760; 96365; 99285; J2543